=== PATIENT | female | born 1970 | race Caucasian/White ===

== ENCOUNTER → 2017-09-24 | Outpatient (CLI) | payer BC ==
--- NOTE | 2017-09-25 10:26 | RAD ---
EXAM DESCRIPTION: Chest,2 Views CLINICAL HISTORY: SOB COMPARISON: None available FINDINGS: The cardiomediastinal silhouette is unremarkable. Bilateral interstitial prominence is noted, most apparent in the lung bases. There is no airspace consolidation or pleural effusion. The lung volumes are within normal range. There is no pneumothorax or acute fracture. IMPRESSION: Bilateral interstitial prominence, nonspecific. The possibility of viral or other atypical infection should be considered. Mild pulmonary vascular congestion is a less likely consideration. Electronically signed by: Theodore Solis MD 09/25/2017 10:25 AM [facility]
== END | disposition home or self-care (01) ==
LOC: RAD 12:34
PROVIDERS: ATTEND Nurse Practitioner Family
DX: R06.02 Shortness of breath (principal)

== ENCOUNTER → 2018-01-17 | Outpatient (CLI) | payer BC | END | disposition home or self-care (01) | LOC: YCFC.O 11:28 | PROVIDERS: ATTEND Nurse Practitioner Family | DX: I10 Essential (primary) hypertension (principal) ==

== ENCOUNTER 2019-05-19 09:48 | Emergency (ER) | payer BC ==
[2019-05-19] MEDS ORDERED: KETOROLAC TROMETHAMINE INJ 30 MG/ML VIAL IV ONE (10:34)
[2019-05-19 10:47] VITALS: TEMP 97.4
--- NOTE | 2019-05-19 10:52 | ED.PDOC ---
History of Present Illness - General Chief Complaint: Lower Extremity Injury Stated Complaint: LEFT KNEE PAIN Time Seen by Provider: 05/19/19 10:17 Source: patient Exam Limitations: no limitations - History of Present Illness Initial Comments: Patient presents by EMS for left knee pain after a fall two days ago. She said she slipped and her left knee hit the ground. She states that she did not have symptoms at that time. This morning she walked downstairs without any problems but when she sat at her desk, the knee started throbbing. She had trouble ambulating at that time. She could not get up so she called EMS. Pain is inside the left knee joint and feels like it is "filling up with fluid". Throbbing in nature, non-radiating. She has osteoarthritis and morbid obesity. No other injuries from the fall. Timing/Duration: 1-3 hours Severity: moderate Improving Factors: rest Worsening Factors: movement Associated Symptoms: denies symptoms Allergies/Adverse Reactions: Allergies Penicillins Allergy (Verified 05/19/19 10:21) Home Medications: Ambulatory Orders Ondansetron HCl [Zofran] 4 mg PO Q6HRS PRN #12 tab 05/19/19 Tramadol HCl 50 mg PO Q4HR PRN #30 tab 05/19/19 Review of Systems - Review of Systems Constitutional: States: no symptoms reported EENTM: States: no symptoms reported Respiratory: States: no symptoms reported Cardiology: States: no symptoms reported Gastrointestinal/Abdominal: States: no symptoms reported Genitourinary: States: no symptoms reported Musculoskeletal: States: see HPI Skin: States: no symptoms reported Neurological: States: no symptoms reported Endocrine: States: no symptoms reported Hematologic/Lymphatic: States: no symptoms reported Past Medical History (General) - Patient Medical History Hx Cardiac Disorders: Yes Hx Hypertension: Yes Family Medical History - Family History Mother Family History: No Known Physical Exam - Physical Exam General Appearance: Obvious distress - moderate distress Respiratory: lungs clear, normal breath sounds Cardiovascular/Chest: normal peripheral pulses, regular rate, rhythm, no edema Gastrointestinal/Abdominal: normal bowel sounds, non tender, soft Extremity: other - bruising and swelling of the left knee. Patient is guarding. Curtis's test not possible due to morbid obesity and guarding. Progress - Progress Progress: 05/19/19 12:23 Radiographs of the right knee, hip, and ankle showed no fractures nor dislocations. STELLA wrap applied. RX for tramadol and zofran given. Care instructions given. E.R. warnings given. Questions were elicited and answered. Patient voiced understanding and agreement with the plan. Departure - Departure Clinical Impression: Knee sprain Disposition: Discharge to Home or Self Care Condition: Good Departure Forms: ED Discharge - Pt. Copy, Patient Portal Self Enrollment Instructions: DI for Knee Pain Diet: other - as per your regular doctor Activity: increase activity as tolerated Referrals: Pinky Chou NP [Primary Care Provider] - 1-2 Weeks Prescriptions: Tramadol HCl 50 mg PO Q4HR PRN #30 tab PRN Reason: Pain Ondansetron HCl [Zofran] 4 mg PO Q6HRS PRN #12 tab PRN Reason: Nausea Home Medications: Ambulatory Orders Ondansetron HCl [Zofran] 4 mg PO Q6HRS PRN #12 tab 05/19/19 Tramadol HCl 50 mg PO Q4HR PRN #30 tab 05/19/19 Additional Instructions: Use crutches. Ice to the painful area three times per day for [address] after taking tramadol. Elevated the left leg above the heart while sleeping at night. Use the STELLA wrap to the knee while awake for three days. If symptoms worsen or do not resolve in 2 weeks, call Dr. Lugo's office for an appointment.
--- NOTE | 2019-05-19 11:28 | RAD ---
2 radiographs left ankle Indication: fall Comparison: None Impression: The frontal view is slightly obliqued and no true oblique view is submitted. Moderate plantar calcaneal heel spur. Extensive subcutaneous edema about the ankle. No acute fracture identified. Electronically signed by: Long Mcmanus MD 05/19/2019 11:27 AM CDT
--- NOTE | 2019-05-19 11:29 | RAD ---
Radiograph left hip Indication: fall Comparison: None. Impression: Examination markedly limited due to underpenetration due to body habitus. No gross displaced fracture, however repeat radiographs versus MRI or CT recommended. Electronically signed by: Long Mcmanus MD 05/19/2019 11:27 AM CDT
--- NOTE | 2019-05-19 11:32 | RAD ---
EXAM DESCRIPTION: Knee,Left 1 or 2 Views CLINICAL HISTORY: fall COMPARISON: None. IMPRESSION: 2 views of the left knee show no acute fracture, focal bone destruction, or joint dislocation. A true lateral projection was not provided. Soft tissues are unremarkable. No advanced arthrosis. Electronically signed by: Kamran Haley MD 05/19/2019 11:30 AM CDT
[2019-05-19] MEDS ORDERED: TETANUS,DIPHTHERIA,PERTUSSIS 1 EA SYG IM ONE (12:47)
[2019-05-19 13:50] VITALS: BP 158/91; O2SAT 90
== END 2019-05-19 13:30 | disposition home or self-care (01) ==
LOC: ER 09:48
DX: S83.92XA Sprain of unspecified site of left knee, initial encounter (principal); I51.9 Heart disease, unspecified; I10 Essential (primary) hypertension; E66.01 Morbid (severe) obesity due to excess calories; Z88.0 Allergy status to penicillin; W01.0XXA Fall on same level from slipping, tripping and stumbling without subsequent striking against object, initial encounter; Z68.44 Body mass index [BMI] 60.0-69.9, adult; Z23 Encounter for immunization; Y92.9 Unspecified place or not applicable
CPT/HCPCS: 73502; 73560; 73600; 90471; 90715; J1885

== ENCOUNTER 2019-05-28 15:41 | Inpatient (IN) | payer BC, SELFPAY ==
[2019-05-28] MEDS ORDERED: VANCOMYCIN HCL INJ 1,000 MG, VANCOMYCIN HCL INJ 500 MG in SODIUM CHLORIDE 0.9% 250ML 25... IVPB ONE (15:58)
[2019-05-28] MEDS ORDERED: VANCOMYCIN HCL INJ 500 MG VIAL ONE (16:49)
[2019-05-28] MEDS ORDERED: VANCOMYCIN HCL INJ 1,000 MG VIAL IVPB ONE (16:49)
[2019-05-28] MEDS ORDERED: SODIUM CHLORIDE 0.9% 250ML 250 ML ONE (16:49)
--- NOTE | 2019-05-28 17:00 | US ---
EXAM DESCRIPTION: Venous,Lower Extremity LT CLINICAL HISTORY: edema, pain COMPARISON: None Available. TECHNIQUE: Left lower extremity venous duplex FINDINGS: There is no DVT identified. There is normal color flow observed with good flow augmentation. All deep veins compress normally. IMPRESSION: Negative for DVT in the left lower extremity. Electronically signed by: Michael Hudson MD 05/28/2019 4:58 PM CDT
--- NOTE | 2019-05-28 17:34 | ED.PDOC ---
History of Present Illness - General Chief Complaint: Skin/Abrasion/Tear Stated Complaint: left lower leg pain,redness,swelling Time Seen by Provider: 05/28/19 15:56 Source: patient Exam Limitations: no limitations - History of Present Illness Initial Comments: the patient is a 49-year-old female sent over from Dr. De La Torre's office secondary to cellulitis and swelling of her left lower extremity. The patient tripped and fell approximately 11 days ago on that knee. She had x-rays done here showing no evidence of any fracture or dislocation. She did apparently however for muscle at that time as she does have some bruising tracking up and down the back of her leg. Additionally since that time she has had more swelling and pain in her posterior calf. She does also appear to have a significant cellulitis to the anterior aspect of the knee. No obvious abscess formation. No chest pain or shortness of breath. No history of DVT. She does have numerous other multiple medical problems. Timing/Duration: getting worse Severity: moderate Improving Factors: nothing Worsening Factors: movement Associated Symptoms: diaphoresis, malaise Allergies/Adverse Reactions: Allergies Penicillins Allergy (Verified 05/19/19 10:21) Home Medications: Ambulatory Orders Ondansetron HCl [Zofran] 4 mg PO Q6HRS PRN #12 tab 05/19/19 Tramadol HCl 50 mg PO Q4HR PRN #30 tab 05/19/19 Review of Systems - Review of Systems Constitutional: States: malaise EENTM: States: no symptoms reported Respiratory: States: no symptoms reported Cardiology: States: no symptoms reported Gastrointestinal/Abdominal: States: no symptoms reported Genitourinary: States: no symptoms reported Musculoskeletal: States: see HPI Skin: States: see HPI Neurological: States: no symptoms reported Endocrine: States: no symptoms reported All other Systems: No Change from Baseline Past Medical History (General) - Patient Medical History Hx Stroke: No Hx of COPD: Yes Hx Cardiac Disorders: Yes Hx Hypertension: Yes Hx Diabetes: No Hx Cancer: Yes - Adrenal Surgical History: cholecystectomy, Hysterectomy - Vaccination History Hx Influenza Vaccination: No - Social History Hx Tobacco Use: Yes Family Medical History - Family History Mother Family History: No Known Physical Exam - Physical Exam General Appearance: Alert, Unkempt Eye Exam: bilateral normal Ears, Nose, Throat: hearing grossly normal, normal ENT inspection Neck: full range of motion, supple Respiratory: lungs clear, normal breath sounds, no respiratory distress, no accessory muscle use Cardiovascular/Chest: normal peripheral pulses, regular rate, rhythm Peripheral Pulses: radial,right: 2+, radial,left: 2+, dorsalis pedis,right: 2+, dorsalis pedis,left: 2+ Gastrointestinal/Abdominal: non tender - morbidly obese., soft Rectal Exam: deferred Back Exam: no CVA tenderness, no vertebral tenderness Extremity: other - significant swelling left lower extremity with bruising tracking down the posterior aspect and cellulitis to the anterior aspect. She has significant tenderness to palpation of the left calf. 3+ edema in the left lower extremity. None to the right lower extremity. 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 The patient is being admitted and placed on vancomycin. She has been on Bactrim previously apparently. Blood culture and wound culture have been performed. Left lower extremity Doppler here shows no evidence of DVT. We are repeating the x-ray of the femur and tib-fib to make sure that there is no evidence of any occult fracture not detected on original x-rays. Laboratory work is mostly reassuring at this point. I'm going to add Rocephin as a secondary antibiotic as well. The patient does have some significant hypertension but she is significantly uncomfortable. If her blood pressures fell to fall with getting comfortable then she will need additional medications. She does also have numerous chronic medical problems only to be followed at home medications continued. Admit for above reasons. Departure - Departure Clinical Impression: Cellulitis of leg without foot Disposition: Admit Patient Departure Forms: ED Discharge - Pt. Copy, Patient Portal Self Enrollment Referrals: Jesus De La Torre MD [Primary Care Provider] - 1-2 Weeks Home Medications: Ambulatory Orders Ondansetron HCl [Zofran] 4 mg PO Q6HRS PRN #12 tab 05/19/19 Tramadol HCl 50 mg PO Q4HR PRN #30 tab 05/19/19 Decision To Admit - Decistion To Admit Decision to Admit Reason: Medical Nature Decision to Admit Date: 05/28/19 Decision to Admit Time: 17:38
[2019-05-28] MEDS ORDERED: cefTRIAXone SODIUM 1 GM in SODIUM CHL 0.9% 50ML MIN-BAG+ 50 ML IVPB ONE (17:39)
--- NOTE | 2019-05-28 18:12 | HP ---
SUPERVISING PHYSICIAN: Graeme Gordon MD CHIEF COMPLAINT: Pain and cellulitis in the left leg status post fall. HISTORY OF PRESENT ILLNESS: Ms. Wilder is a 49-year-old female patient that is morbidly obese. She endorsed that she had fallen approximately 11 days ago at which time she was seen in the Emergency Room and evaluated with no fractures seen at that time. She had an abrasion to the left knee and some pain in the left posterior thigh area. She went to the clinic today to see Dr. De La Torre at [facility] who then referred the patient based on his assessment to be further evaluated for developing cellulitis and concerns for possible either occult fracture or deep venous thrombosis in the left leg status post fall. In the Emergency Room, it was noted that the back of her leg was notably ecchymotic with some swelling and pain in the posterior calf. She did have some significant cellulitis to the anterior aspect of the knee with no obvious abscess formation. She denied any chest pains or shortness of breath and has no history of deep venous thromboses. She is morbidly obese and has multiple underlying comorbidities. Initially, a DVT study of the left leg was without any evidence of thrombus per radiologic interpretation. She also had x- rays of the left tib-fib and femur without any acute findings. Laboratories showed a normal white count, but a mild left shift with white count of 9,700. Coagulation studies showed normal PT, PTT. Chemistries were fairly unremarkable with lactic 0.7 and C-reactive protein showing some elevation at 5.9. Sedrate normal at 27. Given the amount of edema and size of the leg compared to the right and with concerns for developing cellulitis, Dr. Cunha, the Emergency Room physician started the patient on vancomycin and Rocephin and is now requesting the patient be admitted for ongoing treatment with parenteral antibiotics for developing cellulitis and further evaluation. The patient was admitted in stable condition. PAST MEDICAL HISTORY: 1. Morbid obesity. 2. Chronic obstructive pulmonary disease. 3. Obstructive sleep apnea. 4. Right sided heart enlargement secondary to chronic obstructive pulmonary disease, utilizing CPAP. 5. History of adrenal carcinoma on the left with surgical cure. PAST SURGICAL HISTORY: 1. Tubal ligation in 1992. 2. Cholecystectomy. 3. Adrenocorticoectomy in 2004 on the left. 4. Hysterectomy in 2010. 5. Neck surgery with disc fusions and bone grafting. HOME MEDICATIONS: 1. Tramadol 50 mg q.4h. as needed p.r.n. 2. Zofran 4 mg q.6h. as needed p.r.n. 3. Motrin 800 mg p.o. b.i.d. as needed. 4. Symbicort 160-4.5 1 inhaled b.i.d. 5. Hydrochlorothiazide 25 mg at bedtime. 6. Cozaar 100 mg at bedtime. 7. Mobic 15 mg at bedtime as needed. 8. Atenolol 50 mg at bedtime. 9. Clonidine 0.1 mg b.i.d. ALLERGIES: PENICILLIN. FAMILY HISTORY: Positive for mother in her 70s with diabetes mellitus. Her father is in his late 70s secondary to lung cancer. She has one sister than has degenerative disc disease. She has another sister who has COPD and is obese. SOCIAL HISTORY: The patient is and has 3 children. She lives in [place], [place]. She rarely drinks alcohol. She does currently smoke, but smokes less than 1/4 pack a day and has since she was 6 years of age. She denies any illicit drug use. REVIEW OF SYSTEMS: CONSTITUTIONAL: Positive for general malaise. Denies fever or chills. HEENT: Negative for sore throats, earaches, nasal congestion, headaches, vision changes. RESPIRATORY: Denies coughing or shortness of breath. She does have a history of obstructive sleep apnea utilizing CPAP at night. She has COPD, but no signs of exacerbation. CARDIOVASCULAR: Negative for chest pain, palpitations or syncopal episodes. GASTROINTESTINAL: Negative for nausea, vomiting, diarrhea, constipation or abdominal pain. GENITOURINARY: Negative for dysuria, hematuria, polyuria. MUSCULOSKELETAL: As noted in history of present illness, left lower extremity swelling with erythema, abrasion to the anterior distal knee and some ecchymosis to the left posterior thigh with some pain into the calf region and numbness noted on the lateral aspect of the knee. SKIN: As noted in history of present illness and per musculoskeletal. NEUROLOGIC: Denies any headaches, vision changes, syncopal episodes, seizures, ataxia. PHYSICAL EXAMINATION: VITAL SIGNS: She was hypertensive initially in the Emergency Room with a blood pressure 173/125, respirations 20, saturation 95% on room air. Afebrile at 98.7. Heart rate 84. GENERAL: The patient is notably obese. She is unkempt, but appears to be in no acute distress. She is alert. HEENT: Tympanic membranes clear bilaterally. Oropharynx is pink, moist without any lesions. NECK: Supple, nontender with full range of motion. No jugular venous distention noted. RESPIRATORY: Lungs clear to auscultation bilaterally without any rhonchi, wheezes or rales. CARDIOVASCULAR: Regular rate and rhythm without any appreciable murmurs, gallops, or rubs. ABDOMEN: Soft, nontender. Positive bowel sounds. Morbidly obese. BACK: Negative for CVA or vertebral tenderness. EXTREMITIES: Significant amount of swelling to the left lower extremity with bruising tracking down the posterior aspect of the posterior thigh with some cellulitis of the anterior aspect of the knee. Tenderness noted with palpation of the left calf with 3+ edema in the left lower extremity extending from just below the knee to the foot. The right extremity was without any significant findings. No tenderness. Pulses strong bilaterally. NEUROLOGIC: The patient is alert and oriented times three. Cranial nerves II- XII are grossly intact. SKIN: Cellulitis to the left lower extremity with abrasion over the patellar region. No obvious abscess, fluctuation or crepitus. LABORATORY: White count 9,700, hemoglobin 14.3, hematocrit 43.5, platelet count 389,000. Differential does show a left shift. ESR normal at 27. Coagulation studies were normal. Chemistries showed normal electrolytes with creatinine 0.61. Lactic acid 0.7. Liver functions all within normal limits. She did have a slightly elevated C-reactive protein at 5.9. Troponin less than 0.02. MICROBIOLOGY: Wound culture of left knee is pending. Blood cultures pending. RADIOLOGY: She had a tib-fib x-ray on the left as well as femur without any notable fracture, but just soft tissue swelling observed per radiologic interpretation. The femur was without any significant findings as far as soft tissue or joint or any fractures or dislocations. ASSESSMENT: 1. Left lower extremity cellulitis status post fall with a negative lower extremity Doppler study for deep venous thrombosis. 2. Morbid obesity. 3. Chronic obstructive pulmonary disease with obstructive sleep apnea without any signs of exacerbation. 4. Right sided heart enlargement secondary to chronic obstructive pulmonary disease. 5. History of adrenal carcinoma with surgical cure on the left. PLAN: Ms. Wilder is going to be admitted for initiation of treatment of cellulitis of the lower extremity. She was given vancomycin 1500 mg initially in the Emergency Room. This will be followed up with vancomycin per pharmacy protocol as well as she was given Rocephin and this will be continued 1 gram q.12h. She will be on DVT prophylaxis per protocol with Lovenox. We will start her on a regular diet. We will resume her medications once updated and verified. We will plan to follow her labs and repeat those in the morning. We will await culture results to target antibiotic therapy. We will anticipate her length of stay to be 2 to 3 days. We will encourage good pulmonary hygiene and have the patient on bedrest or in the chair for the next 24 to 48 hours with the leg elevated to help decrease some of the swelling in that leg. Until she can transition to oral medications and outpatient management, we will continue to monitor and treat as needed. #[id number] MTDD
--- NOTE | 2019-05-28 18:16 | RAD ---
EXAM DESCRIPTION: Femur,Left CLINICAL HISTORY: bruising, cellutitis fall COMPARISON: 19 May 2019 TECHNIQUE: 2 views left FINDINGS: I see no bone joint or soft tissue abnormality. IMPRESSION: Normal left femur Electronically signed by: Percy Saavedra MD 05/28/2019 6:15 PM CDT
--- NOTE | 2019-05-28 18:17 | RAD ---
EXAM DESCRIPTION: Tibia/Fibula,Left CLINICAL HISTORY: bruising, cellutitis fall COMPARISON: 19 May 2019 TECHNIQUE: 2 views left FINDINGS: Soft tissue swelling is observed anteriorly. No bone or joint abnormality is detected. IMPRESSION: Soft tissue swelling is observed without evidence of fracturing. Electronically signed by: Percy Saavedra MD 05/28/2019 6:16 PM CDT
[2019-05-28] MEDS ORDERED: cefTRIAXone SODIUM 1 GM VIAL ONE (19:16)
[2019-05-28] MEDS ORDERED: SODIUM CHL 0.9% 50ML MIN-BAG+ 50 ML IVPB ONE (19:16)
[2019-05-28] MEDS ORDERED: NON-FORMULARY MEDICATION 1 EA MIS (Atenolol [Tenormin] 50 MG) PO SCH (21:00)
[2019-05-28] MEDS ORDERED: traMADol HCL 50 MG TAB PO PRN (22:15)
[2019-05-28] MEDS ORDERED: HYDROcodone 5MG/APAP 325MG 1 EA TAB PO PRN (22:19)
[2019-05-28] MEDS ORDERED: ALUM & MAG HYDROX-SIMETHICONE 30 ML UD PO PRN (22:19)
[2019-05-28] MEDS ORDERED: MORPHINE SULFATE INJ 10 MG/ML VIAL IV PRN (22:19)
[2019-05-28] MEDS ORDERED: MAGNESIUM HYDROXIDE 30 ML UD PO PRN (22:19)
[2019-05-28] MEDS ORDERED: SODIUM CHLORIDE 0.9% (FLUSH) 10 ML SYG IV PRN (22:19)
[2019-05-28] MEDS ORDERED: ONDANSETRON INJ 4 MG/2 ML VIAL IV PRN (22:19)
[2019-05-28] MEDS ORDERED: ATENOLOL 25 MG TAB ONE (22:47)
[2019-05-28] MEDS: LOSARTAN POTASSIUM 100 MG TAB PO SCH (22:50)
[2019-05-28] MEDS: hydroCHLOROthiazide 25 MG TAB PO SCH (22:50)
[2019-05-28] MEDS: IV SET AND CAP CHANGE INJ INJ SCH (22:50)
[2019-05-28] MEDS: cloNIDine HCL 0.1 MG TAB PO SCH (22:50)
[2019-05-29] MEDS: ACETAMINOPHEN 325 MG TAB PO PRN ×2 (01:08→12:52)
[2019-05-29] MEDS ORDERED: LORazepam 0.5 MG TAB PO ONE (02:09)
[2019-05-29] MEDS ORDERED: ALUM & MAG HYDROX-SIMETHICONE 30 ML, LIDOCAINE VISCOUS 2% 15 ML PO ONE ×2 (03:03)
[2019-05-29] MEDS ORDERED: ASPIRIN (CHEWABLE) 81 MG TAB PO ONE (03:05)
[2019-05-29] MEDS ORDERED: ASPIRIN TABLET 325 MG TAB ONE (03:09)
[2019-05-29] MEDS ORDERED: LIDOCAINE HCL 2% (MOUTH-THROAT) 15 ML UD ONE (03:09)
[2019-05-29] MEDS ORDERED: NITROGLYCERIN 0.2 MG/HR PATCH TD SCH (03:30)
[2019-05-29] MEDS: OMEPRAZOLE CAP 20 MG CAP PO SCH (06:19)
--- NOTE | 2019-05-29 07:34 | RAD ---
2 view chest indication: COPD Comparison: 09/24/17 Impression: Mild cardiomegaly. Mild vascular congestion. Mild aortic tortuosity. No lobar consolidation. Prior ACDF. Electronically signed by: Siva Mosher MD 05/29/2019 7:32 AM CDT
[2019-05-29] MEDS: BUDESONIDE/FORMOTEROL 160/4.5 60 PUFF/6 GM INH INH SCH (08:50)
[2019-05-29] MEDS ORDERED: [UNRECOGNIZED DRUG - OTHER] INH SCH (09:00)
[2019-05-29] MEDS ORDERED: SODIUM CHL 0.9% 50ML MIN-BAG+ 50 ML IVPB ONE (09:23)
[2019-05-29] MEDS ORDERED: cefTRIAXone SODIUM 1 GM VIAL ONE (09:24)
[2019-05-29] MEDS: cefTRIAXone SODIUM 1 GM in SODIUM CHL 0.9% 50ML MIN-BAG+ 50 ML IVPB SCH (09:25)
[2019-05-29] MEDS: ENOXAPARIN SODIUM 40 MG/0.4 ML SYG SUBCU SCH (09:33)
[2019-05-29] MEDS: cloNIDine HCL 0.1 MG TAB PO SCH ×2 (09:33→20:19)
[2019-05-29] MEDS ORDERED: VANCOMYCIN PER PHARMACY INJ SCH (10:00)
[2019-05-29] MEDS ORDERED: VANCOMYCIN HCL INJ 1,000 MG, VANCOMYCIN HCL INJ 500 MG in SODIUM CHLORIDE 0.9% 250ML 25... IVPB SCH (10:00)
[2019-05-29] MEDS ORDERED: VANCOMYCIN HCL INJ 500 MG VIAL ONE ×3 (10:21→18:15)
[2019-05-29] MEDS ORDERED: VANCOMYCIN HCL INJ 1,000 MG VIAL IVPB ONE ×3 (10:22→18:15)
[2019-05-29] MEDS ORDERED: SODIUM CHLORIDE 0.9% 250ML 250 ML ONE ×3 (10:22→18:15)
[2019-05-29] MEDS: VANCOMYCIN HCL INJ 1,000 MG, VANCOMYCIN HCL INJ 500 MG in SODIUM CHLORIDE 0.9% 250ML 25... IVPB SCH ×2 (11:10→18:21)
[2019-05-29] MEDS: LOSARTAN POTASSIUM 100 MG TAB PO SCH (20:18)
[2019-05-29] MEDS: hydroCHLOROthiazide 25 MG TAB PO SCH (20:19)
[2019-05-29] MEDS: ATENOLOL 25 MG TAB PO SCH (20:19)
--- NOTE | 2019-05-29 21:26 | PN ---
DATE: 05/29/19 SUPERVISING PHYSICIAN: Graeme Gordon M.D. SUBJECTIVE: The patient reports that the swelling in the leg has decreased. The pain is not as bad. She did have some episodes last night that seemed to be more of a panic attack, but she was worked up as if maybe it was chest pain. After she put on her CPAP she had no recurrence of pain. She responded well to Ativan. This morning, is having no complaints. OBJECTIVE: VITAL SIGNS: Temperature 98.1, pulse 75, blood pressure 145/77, respirations 16, satting 95% on room air. I's and O's show weight 176 kg. GENERAL: The patient is resting comfortably. She is alert and in no distress acutely. CHEST: Lung sounds were clear to auscultation, just slightly diminished towards the bases. HEART: Regular rate and rhythm. ABDOMEN: Obese but soft, non-tender. Positive bowel sounds. EXTREMITIES: Left leg continues to show some erythema but improved from yesterday with the erythema extending from just above the knee down to the foot with an abrasion area over the patellar region. There is a streaking ecchymotic area to the posterior aspect of the knee and lateral thigh area. Pulses distally are strong. Edema shows to be still 2+. NEUROLOGIC: She is alert and oriented times three. LABORATORY: No repeat laboratory yesterday except for troponin which was showing to be less than 0.02. EKG showed normal sinus rhythm last night. RADIOLOGY: Chest x-ray per radiology interpretation showed mid cardiomegaly with mild vascular congestion with mild aortic tortuosity with no lobar consolidations. ASSESSMENT: 1. Left lower extremity cellulitis status post fall with a negative lower extremity Doppler study for deep venous thrombosis showing some improvement with Levaquin and vancomycin. 2. Panic attack with questionable chest pain during the middle of the night responding to Ativan with no EKG changes, negative troponins and not having any recurrence of chest pain felt to be related to claustrophobia and use of CPAP. 3. Morbid obesity. 4. Chronic obstructive sleep apnea and chronic obstructive pulmonary disease without any signs of exacerbation utilizing CPAP at night. 4. Right sided heart enlargement secondary to chronic obstructive pulmonary disease. 5. History of adrenal carcinoma with surgical cure on the left. PLAN: Will continue with current plan at this point with vancomycin per Pharmacy protocol and Rocephin. She is on DVT prophylaxis with Lovenox. We restarted her medications. Will continue to follow cultures and will anticipate at least another 2 days with anticipation of discharging hopefully Sunday. If she continues to show improvement as she did today, I would anticipate she would go home Sunday. Until then will continue to monitor and treat as needed. #[id number] MTDD
[2019-05-30] MEDS: ACETAMINOPHEN 325 MG TAB PO PRN ×2 (02:31→14:05)
[2019-05-30] MEDS ORDERED: VANCOMYCIN HCL INJ 500 MG VIAL ONE ×3 (02:40→16:59)
[2019-05-30] MEDS ORDERED: VANCOMYCIN HCL INJ 1,000 MG VIAL IVPB ONE ×3 (02:40→17:00)
[2019-05-30] MEDS ORDERED: SODIUM CHLORIDE 0.9% 250ML 250 ML ONE ×3 (02:40→17:00)
[2019-05-30] MEDS: VANCOMYCIN HCL INJ 1,000 MG, VANCOMYCIN HCL INJ 500 MG in SODIUM CHLORIDE 0.9% 250ML 25... IVPB SCH ×2 (02:42→10:05)
[2019-05-30] MEDS: OMEPRAZOLE CAP 20 MG CAP PO SCH (06:13)
[2019-05-30] MEDS ORDERED: SODIUM CHL 0.9% 50ML MIN-BAG+ 50 ML IVPB ONE (07:08)
[2019-05-30] MEDS ORDERED: cefTRIAXone SODIUM 1 GM VIAL ONE (07:09)
[2019-05-30] MEDS: cefTRIAXone SODIUM 1 GM in SODIUM CHL 0.9% 50ML MIN-BAG+ 50 ML IVPB SCH (07:24)
[2019-05-30] MEDS: cloNIDine HCL 0.1 MG TAB PO SCH ×2 (08:19→21:08)
[2019-05-30] MEDS: ENOXAPARIN SODIUM 40 MG/0.4 ML SYG SUBCU SCH (08:19)
[2019-05-30] MEDS: BUDESONIDE/FORMOTEROL 160/4.5 60 PUFF/6 GM INH INH SCH ×2 (09:10→19:30)
[2019-05-30] MEDS: VANCOMYCIN HCL INJ 1,000 MG, VANCOMYCIN HCL INJ 250 MG in SODIUM CHLORIDE 0.9% 250ML 25... IVPB SCH (17:40)
[2019-05-30] MEDS: hydroCHLOROthiazide 25 MG TAB PO SCH (21:08)
[2019-05-30] MEDS: ATENOLOL 25 MG TAB PO SCH (21:08)
[2019-05-30] MEDS: LOSARTAN POTASSIUM 100 MG TAB PO SCH (21:08)
--- NOTE | 2019-05-30 21:33 | PN ---
DATE: 05/30/19 SUPERVISING PHYSICIAN: Graeme Gordon M.D. SUBJECTIVE: The patient continues to do well. Her leg is responding to therapy. She says the pain is much less. She has not been febrile. She has not had any more panic attacks. OBJECTIVE: VITAL SIGNS: Temperature 98.4, pulse 78, blood pressure 138/79, respirations 18, satting 94% on room air. Weight is 176.1 kg. GENERAL: The patient is resting comfortably. Appears to be in no acute distress. She is alert and oriented. CHEST: Lung sounds are clear to auscultation. HEART: Regular rate and rhythm. ABDOMEN: Obese but soft, non-tender. Positive bowel sounds. EXTREMITIES: Left leg continues to show some erythema but improved compared to yesterday. It is still a little tender to palpation over the knee. No obvious drainage. Pulses distally were 2+ bilaterally. The swelling is significantly decreased. It is about 1+ today compared to admission. No obvious drainage is noted from the abrasion over the knee. NEUROLOGIC: She is alert and oriented times three. LABORATORY: No additional laboratory studies were completed. RADIOLOGY: No additional radiographic studies today. ASSESSMENT: 1. Left lower extremity cellulitis status post fall with a negative lower extremity Doppler study for deep venous thrombosis showing some improvement with Levaquin and vancomycin. 2. Chest pain related to panic attacks with no evidence of acute coronary syndrome with EKGs being without any significant changes and cardiac troponins all being negative felt to be related to claustrophobia from use of CPAP with no recurrence of symptoms. 3. Morbid obesity complicating #1. 4. Chronic obstructive sleep apnea secondary to morbid obesity with a component of chronic obstructive pulmonary disease. 5. Right sided cardiomyopathy with enlargement secondary to chronic obstructive pulmonary disease probably cor pulmonale with no current signs of exacerbation. 6. History of adrenal carcinoma with surgical cure on the left. PLAN: The patient continues to show good response to current treatment plan with vancomycin per Pharmacy protocol as well as Rocephin. Will continue it as planned. She is on DVT prophylaxis. We continue to await cultures that were collected in the E. R. Anticipate hopefully being able to discharge tomorrow. Until then will continue to monitor and treat as needed. #[id number] [facility]
[2019-05-31] MEDS: ACETAMINOPHEN 325 MG TAB PO PRN ×2 (00:34→15:42)
[2019-05-31] MEDS ORDERED: VANCOMYCIN HCL INJ 500 MG VIAL ONE ×4 (01:52→19:31)
[2019-05-31] MEDS ORDERED: VANCOMYCIN HCL INJ 1,000 MG VIAL IVPB ONE ×4 (01:52→19:32)
[2019-05-31] MEDS ORDERED: SODIUM CHLORIDE 0.9% 250ML 250 ML ONE ×4 (01:52→19:31)
[2019-05-31] MEDS: VANCOMYCIN HCL INJ 1,000 MG, VANCOMYCIN HCL INJ 250 MG in SODIUM CHLORIDE 0.9% 250ML 25... IVPB SCH ×3 (01:54→17:46)
[2019-05-31] MEDS: OMEPRAZOLE CAP 20 MG CAP PO SCH (06:18)
[2019-05-31] MEDS ORDERED: SODIUM CHL 0.9% 50ML MIN-BAG+ 50 ML IVPB ONE (07:33)
[2019-05-31] MEDS ORDERED: cefTRIAXone SODIUM 1 GM VIAL ONE (07:33)
[2019-05-31] MEDS: cloNIDine HCL 0.1 MG TAB PO SCH ×2 (08:24→20:45)
[2019-05-31] MEDS: ENOXAPARIN SODIUM 40 MG/0.4 ML SYG SUBCU SCH (08:24)
[2019-05-31] MEDS: cefTRIAXone SODIUM 1 GM in SODIUM CHL 0.9% 50ML MIN-BAG+ 50 ML IVPB SCH (08:25)
[2019-05-31] MEDS: BUDESONIDE/FORMOTEROL 160/4.5 60 PUFF/6 GM INH INH SCH ×2 (09:30→20:36)
--- NOTE | 2019-05-31 16:12 | PN ---
DATE: 05/31/19 SUPERVISING PHYSICIAN: Graeme Gordon M.D. SUBJECTIVE: The patient is lying in her bed. She is asleep. She awakens easily. She feels like her leg has continued to improve but she still feels quite weak. Denies shortness of breath, chest pain, nausea or vomiting. OBJECTIVE: VITAL SIGNS: Temperature 97.8, heart rate 74, blood pressure 126/72, respiratory rate 17, O2 sat 97% on 2 liters. RESPIRATORY: Diminished breath sounds throughout, otherwise clear to auscultation. CARDIAC: Regular rate and rhythm. GASTROINTESTINAL: Abdomen is soft. She is obese. It is non-tender. Bowel sounds are positive. EXTREMITIES: Right leg is quite edematous. She has erythema from just distal to the right knee to her right ankle. There is no fluctuance. It is erythematous. Bilateral pedal pulses are +2. NEUROLOGIC: She is somewhat lethargic but oriented times three. LABORATORY: Preliminary blood cultures show no growth after 48 hours. All other labs and films have been reviewed via the EMR. ASSESSMENT: 1. Left lower extremity cellulitis status post fall with a negative lower extremity Doppler study for deep venous thrombosis showing some improvement with Levaquin and vancomycin. 2. Chest pain related to panic attacks with no evidence of acute coronary syndrome with EKGs being without any significant changes and cardiac troponins all being negative felt to be related to claustrophobia from use of CPAP with no recurrence of symptoms. 3. Morbid obesity complicating #1. 4. Chronic obstructive sleep apnea secondary to morbid obesity with a component of chronic obstructive pulmonary disease. 5. Right sided cardiomyopathy with enlargement secondary to chronic obstructive pulmonary disease probably cor pulmonale with no current signs of exacerbation. 6. History of adrenal carcinoma with surgical cure on the left. PLAN: We will continue present supportive care. I am still awaiting culture results. Hopefully when those are resulted we can discharge her home on oral therapy with close followup with her primary care physician. Hopefully she can be discharged tomorrow. Until then will continue to monitor closely and treat as needed. #[id number] [facility]
[2019-05-31] MEDS: hydroCHLOROthiazide 25 MG TAB PO SCH (20:46)
[2019-05-31] MEDS: ATENOLOL 25 MG TAB PO SCH (20:46)
[2019-05-31] MEDS: LOSARTAN POTASSIUM 100 MG TAB PO SCH (20:46)
[2019-05-31] MEDS: IV SET AND CAP CHANGE INJ INJ SCH (23:05)
[2019-06-01] MEDS: VANCOMYCIN HCL INJ 1,000 MG, VANCOMYCIN HCL INJ 250 MG in SODIUM CHLORIDE 0.9% 250ML 25... IVPB SCH ×2 (01:50→09:53)
[2019-06-01] MEDS: OMEPRAZOLE CAP 20 MG CAP PO SCH (06:09)
[2019-06-01] MEDS ORDERED: SODIUM CHL 0.9% 50ML MIN-BAG+ 50 ML IVPB ONE (07:13)
[2019-06-01] MEDS ORDERED: cefTRIAXone SODIUM 1 GM VIAL ONE (07:14)
[2019-06-01] MEDS: BUDESONIDE/FORMOTEROL 160/4.5 60 PUFF/6 GM INH INH SCH (07:57)
[2019-06-01] MEDS: cefTRIAXone SODIUM 1 GM in SODIUM CHL 0.9% 50ML MIN-BAG+ 50 ML IVPB SCH (08:22)
[2019-06-01 09:25] VITALS: TEMP 98.5
[2019-06-01] MEDS: ENOXAPARIN SODIUM 40 MG/0.4 ML SYG SUBCU SCH (09:28)
[2019-06-01] MEDS: cloNIDine HCL 0.1 MG TAB PO SCH (09:29)
[2019-06-01] MEDS ORDERED: VANCOMYCIN HCL INJ 1,000 MG VIAL IVPB ONE (09:41)
[2019-06-01] MEDS ORDERED: VANCOMYCIN HCL INJ 500 MG VIAL ONE (09:41)
[2019-06-01] MEDS ORDERED: SODIUM CHLORIDE 0.9% 250ML 250 ML ONE (09:41)
[2019-06-01] MEDS: ACETAMINOPHEN 325 MG TAB PO PRN (10:17)
[2019-06-01 12:51] VITALS: BP 134/72; O2SAT 95
--- NOTE | 2019-06-02 08:40 | DS ---
SUPERVISING PHYSICIAN: Graeme Gordon MD DISCHARGE DIAGNOSIS: 1. Left lower extremity cellulitis status post fall with a negative lower extremity Doppler study for deep venous thrombosis showing some improvement with Levaquin and vancomycin. 2. Chest pain related to panic attacks with no evidence of acute coronary syndrome with EKGs being without any significant changes and cardiac troponins all being negative felt to be related to claustrophobia from use of CPAP with no recurrence of symptoms. 3. Morbid obesity complicating #1. 4. Chronic obstructive sleep apnea secondary to morbid obesity with a component of chronic obstructive pulmonary disease. 5. Right sided cardiomyopathy with enlargement secondary to chronic obstructive pulmonary disease probably cor pulmonale with no current signs of exacerbation. 6. History of adrenal carcinoma with surgical cure on the left. HISTORY OF PRESENT ILLNESS: This is a 49-year-old morbidly obese female who came to the Emergency Room with complaints that she had fallen approximately 11 days prior. There were no fractures seen at that time. She had an abrasion to the left knee and some pain in the left posterior thigh area. She went to the clinic to see Dr. De La Torre and he referred the patient to the hospital for developing cellulitis and concerns for possible either occult fracture or deep venous thrombosis of the left leg status post fall. In the Emergency Room, it was noted that the back of her leg was notably ecchymotic with some swelling and pain in the posterior calf. She did have some significant cellulitis to the anterior aspect of the knee with no obvious abscess formation. She denied any chest pains or shortness of breath and has no history of deep venous thromboses. She has multiple underlying comorbidities that including morbid obesity. Her initial DVT study of the left leg was without any evidence of thrombus per radiologic interpretation. She also had x-rays of the left tib-fib and femur without any acute findings. Laboratories showed a normal white count with a mild left shift. Coagulation studies were normal. Chemistries were unremarkable. Lactic 0.7 and C-reactive protein elevated at 5.9. Sedrate normal at 27. Given the amount of edema and size of the leg compared to the right and with concerns for developing cellulitis, Dr. Cunha, the Emergency Room physician, felt that the patient should be started on vancomycin and Rocephin and be treated with ongoing parenteral antibiotics from the Emergency Rooms to the Medical/Surgical Floor. HOSPITAL COURSE: The patient was admitted to the hospital. She was given vancomycin and Rocephin. She was placed on DVT prophylaxis and her labs were closely monitored. Her left leg was elevated. She was given some tramadol for pain. Her home medications were restarted. It did improve, although very slowly. Her wound culture did come back positive for Streptococcus dysgalactiae. Her leg improved daily. The patient was able to ambulate in the hayes without any problems. Her tramadol controlled her pain well. She will be discharged home today in stable condition. LABORATORY: As per the history of present illness. RADIOLOGY: As per the history of present illness. DISCHARGE PLAN: The patient will be discharged home in stable condition. She is to resume her previous activity, but she is to elevate her left leg as much as possible. She is to followup with Dr. De La Torre within the next 1 to 2 weeks. In addition to her routine medications, she is also to have 10 days of cefdinir as well as I have given her some tramadol for pain. She will return to the hospital or followup with Dr. De La Torre for any problems or complications. DISCHARGE MEDICATIONS: 1. Tramadol. 2. Zofran. 3. Hydrochlorothiazide. 4. Losartan. 5. Meloxicam. 6. Ibuprofen. 7. Atenolol. 8. Clonidine. 9. Symbicort inhaler. 10. Cefdinir. #[id number] [facility]
== END 2019-06-01 12:51 | disposition home or self-care (01) | DRG 603 ==
LOC: ER 15:41 → MS 18:10
PROVIDERS: ADMIT Nurse Practitioner Family; ATTEND Nurse Practitioner Acute Care
DX: L03.116 Cellulitis of left lower limb (principal); I42.9 Cardiomyopathy, unspecified; Z68.44 Body mass index [BMI] 60.0-69.9, adult; F41.0 Panic disorder [episodic paroxysmal anxiety]; F40.240 Claustrophobia; S80.212A Abrasion, left knee, initial encounter; W19.XXXA Unspecified fall, initial encounter; G47.33 Obstructive sleep apnea (adult) (pediatric); J44.9 Chronic obstructive pulmonary disease, unspecified; I10 Essential (primary) hypertension; I27.81 Cor pulmonale (chronic); B95.4 Other streptococcus as the cause of diseases classified elsewhere; E66.01 Morbid (severe) obesity due to excess calories; Y92.9 Unspecified place or not applicable; Z79.1 Long term (current) use of non-steroidal anti-inflammatories (NSAID); Z85.89 Personal history of malignant neoplasm of other organs and systems; Z79.891 Long term (current) use of opiate analgesic; Z79.52 Long term (current) use of systemic steroids; Z79.899 Other long term (current) drug therapy; Z88.0 Allergy status to penicillin

== ENCOUNTER → 2019-07-09 | Outpatient (CLI) | payer BC ==
--- NOTE | 2019-07-09 16:52 | US ---
EXAM DESCRIPTION: Venous,Lower Extremity LT CLINICAL HISTORY: Cellulitis of lower limb COMPARISON: Previous left lower extremity Doppler sonogram May 28, 2019 TECHNIQUE: Left lower extremity venous duplex FINDINGS: Doppler evaluation of the left lower extremity deep veins was performed. Normal color flow is seen in the common femoral, superficial femoral, profunda femoral and greater saphenous veins. Normal flow is seen in the popliteal vein and veins below the knee in the calf. Normal venous compressibility and flow augmentation. IMPRESSION: Negative for evidence of deep venous thrombosis on left lower extremity venous Doppler sonogram. Electronically signed by: Richard Diaz MD 07/09/2019 4:50 PM CDT
== END ==
LOC: US 12:06
PROVIDERS: ATTEND Family Medicine
DX: L03.119 Cellulitis of unspecified part of limb (principal)

== ENCOUNTER → 2019-07-15 | Outpatient (CLI) | payer BC | LOC: YCFC.O 15:52 | PROVIDERS: ATTEND Family Medicine | DX: I10 Essential (primary) hypertension (principal); M13.0 Polyarthritis, unspecified ==

== ENCOUNTER 2019-10-23 05:35 | Day surgery (SDC) | payer BC ==
[2019-10-23] MEDS ORDERED: PROPOFOL 200 MG/20 ML VIAL IV ONE (07:00)
[2019-10-23] MEDS ORDERED: LIDOCAINE 1% 10 ML VIAL INJ ONE (07:00)
[2019-10-23] MEDS ORDERED: SODIUM CHLORIDE 0.9% 50 ML VIAL ONE (07:00)
[2019-10-23] MEDS ORDERED: LACTATED RINGERS 1,000 ML ONE (07:04)
[2019-10-23] MEDS ORDERED: LEVALBUTEROL NEBS 1.25 MG/3 ML VIAL NEB ONE ×2 (08:25→08:28)
[2019-10-23] MEDS ORDERED: DEXMEDETOMIDINE HCL 200 MCG/2 ML INJ IV ONE (08:40)
[2019-10-23] MEDS ORDERED: MIDAZOLAM INJ 2 MG/2 ML VIAL ONE (08:42)
[2019-10-23] MEDS ORDERED: KETAMINE HCL 100 MG/ML VIAL ONE (08:51)
--- NOTE | 2019-10-23 10:11 | OP ---
DATE OF PROCEDURE: 10/23/19 PREOPERATIVE DIAGNOSIS: 1. Anemia. 2. Abdominal pain. POSTOPERATIVE DIAGNOSIS: 1. Anemia. 2. Abdominal pain. PROCEDURE: 1. EGD with biopsy of pyloric ulcer. 2. Colonoscopy with excision of cecal polyp. SURGEON: Graeme James MD ANESTHESIA: General. PROCEDURE: In lateral position, general anesthesia was induced. With the bite block in place, the esophagogastroduodenoscope was introduced. The esophagus appeared normal, as did the gastroesophageal junction. Upon entering the stomach, there was no blood. We entered the duodenum without difficulty through the third portion. No evidence of duodenal ulcers was seen. Upon withdrawal through the pylorus, we identified a deep, non-bleeding ulcer on the upper portion with another ulcer across from that, kissing duodenal ulcer, non- bleeding. Biopsies were taken of the area. One will be sent for H. pylori. Upon withdrawal and retroflexion, no other abnormalities were seen. No significant hiatal hernia identified. Again, on withdrawal, the esophagus appeared normal. She was then placed in the lateral position. Digital rectal exam was normal. The colonoscope was inserted without difficulty. The colonoscope was then passed with minimal effort to the cecum. There was a lot of large food particles in the cecum, so the very distal cecum was not adequately evaluated, but no evidence of significant polyps there were seen. There was one small polyp in the distal cecum, about 2 mm that was excised. Upon withdrawal, no other polyps were seen. There was no evidence of colitis, etc. Air was removed and the scope removed without difficult. Retroflexion was also normal prior. The patient tolerated the procedure and was taken to Recovery to be discharged. #[id number] [facility]
[2019-10-23 11:33] VITALS: O2SAT 95
[2019-10-23 15:35] VITALS: BP 97/66; TEMP 98.8
== END 2019-10-23 11:00 | disposition home or self-care (01) ==
LOC: AMB 05:35
PROVIDERS: ATTEND Surgery
DX: D50.9 Iron deficiency anemia, unspecified (principal); K29.50 Unspecified chronic gastritis without bleeding; B96.81 Helicobacter pylori [H. pylori] as the cause of diseases classified elsewhere; D12.0 Benign neoplasm of cecum; K59.00 Constipation, unspecified; F32.9 Major depressive disorder, single episode, unspecified; K21.9 Gastro-esophageal reflux disease without esophagitis; J44.9 Chronic obstructive pulmonary disease, unspecified; J45.909 Unspecified asthma, uncomplicated; I10 Essential (primary) hypertension; E66.01 Morbid (severe) obesity due to excess calories; Z68.44 Body mass index [BMI] 60.0-69.9, adult; Z88.0 Allergy status to penicillin; Z90.710 Acquired absence of both cervix and uterus; Z79.82 Long term (current) use of aspirin; Z79.899 Other long term (current) drug therapy
CPT/HCPCS: 00813; 43239; 45380; 94640; A4216; J2250; J3490; J7120; J7614

== ENCOUNTER → 2019-10-29 | Outpatient (CLI) | payer BC | LOC: LAB.O 10:48 | PROVIDERS: ATTEND Family Medicine | DX: D64.9 Anemia, unspecified (principal) ==

== ENCOUNTER 2020-10-20 18:04 | Inpatient (IN) | payer BC, SELFPAY ==
--- NOTE | 2020-10-20 18:40 | ED.PDOC ---
History of Present Illness - General Chief Complaint: Respiratory Problem Time Seen by Provider: 10/20/20 18:40 - History of Present Illness Initial Comments: 50-year-old female positive past medical history presents with friend to ED complaining of several days of worsening shortness of breath. Patient endorses associated headache, fatigue, generalized body aches, cough, nasal congestion. She denies any chest pain, palpitations, loss of taste or smell, nausea/vomiting/diarrhea. Positive history of similar symptoms due to COPD. Denies alleviating/aggravating factors. No other signs, symptoms, complaints at this time. Allergies/Adverse Reactions: Allergies Penicillins Allergy (Unknown, Verified 10/22/19 14:41) Home Medications: Ambulatory Orders Ondansetron HCl [Zofran] 4 mg PO Q6HRS PRN #12 tab 05/19/19 Atenolol [Tenormin] 25 mg PO DAILY 05/28/19 Clonidine HCl 0.1 mg PO BID 05/28/19 Hydrochlorothiazide 25 mg PO DAILY 05/28/19 Losartan Potassium [Cozaar] 100 mg PO DAILY 05/28/19 Tramadol HCl 50 mg PO Q4HR PRN #30 tab 06/01/19 Acetaminophen [Tylenol] 1,000 mg PO Q6HR PRN 10/22/19 Aspirin [Misael Aspirin] 325 mg PO DAILY 10/22/19 Meloxicam [Mobic] 15 mg PO BEDTIME 10/22/19 Multiple Vitamin [Multi Vitamin] 1 tab PO DAILY 10/22/19 Potassium 2 tablet PO DAILY 10/22/19 Review of Systems - Review of Systems Constitutional: States: other - fatigue. Denies: chills, fever EENTM: States: nose congestion. Denies: throat pain Respiratory: States: cough, short of breath Cardiology: Denies: chest pain, palpitations Gastrointestinal/Abdominal: Denies: abdominal pain, diarrhea, nausea, vomiting Genitourinary: Denies: dysuria, frequency Musculoskeletal: States: muscle pain. Denies: neck pain Skin: Denies: change in color, rash Neurological: States: headache. Denies: paresthesia Hematologic/Lymphatic: Denies: easy bruising Past Medical History (General) - Patient Medical History Hx Seizures: Yes - fever seizures as an Hx Stroke: No Hx Asthma: Yes Hx of COPD: Yes Hx Cardiac Disorders: Yes Hx Congestive Heart Failure: No Hx Pacemaker: No Hx Hypertension: Yes Hx Diabetes: No Hx Cancer: Yes - Adrenal Hx MRSA: No - Vaccination History Hx Influenza Vaccination: No - Social History Hx Tobacco Use: Yes Hx Alcohol Use: No Hx Substance Use: No Hx Physical Abuse: No Hx Emotional Abuse: Yes Family Medical History - Family History Mother Family History: No Known Living Status: Still Living Hx Family Asthma: No Hx Family Congestive Heart Failure: No Hx Family Hypertension: Yes Hx Family Stroke: No Hx Cardiac Disease: No Hx Family Diabetes: Yes Hx Family Cancer: No Father Living Status: Cause of : Lung Cancer Physical Exam - Physical Exam General Appearance: Alert, Obese, Other - Morbid BMI, distressed Eyes, Ears, Nose, Throat Exam: normal ENT inspection, other - no scleral icterus Neck: full range of motion, supple Respiratory: respiratory distress, decreased breath sounds, accessory muscle use, wheezing, other - tachypnea Cardiovascular/Chest: no edema, no JVD, no murmur, tachycardia, other - regular rhythm Gastrointestinal/Abdominal: normal bowel sounds, non tender, soft, other - protruberant Extremity: normal inspection, no pedal edema Neurologic: alert, normal mood/affect, oriented x 3 Skin Exam: normal color, warm/dry, other - no rash Progress - Progress Progress: Lior Singh DO Emergency Medicine Physician [facility] #[id number] Appropriate PPE of surgical mask, gown, gloves, and eye protection (if encounter >5 minutes) utilized with every patient encounter; in accordance with hospital policy. Presents for COPD exacerbation. Low clinical concern for COVID19. I will perform imaging, labs, EKG, provide appropriate pharmacotherapy, and continue to monitor/reassess. Dispo will depend on imaging results and overall course in ED; however, admission is expected due to hypoxia on RA. 10/20/20 19:12 decision to admit Rechecked pt. VSS. I have discussed need for admission and pt agrees. 1958 Consulted with hospitalist Eder Power discussed patient's case in ED along with current findings. He accepts patient for admission. - Results/Orders Results/Orders: EKG @2111: Sinus tachycardia at 103, normal axis, intervals within normal limits, no ST elevation/depressions, no STEMI. 10/20/20 19:10 IV Care:Saline Lock per Protoc QSHIFT 10/20/20 19:11 IV:Start .ONCE 10/20/20 19:12 EKG Assessment ONCE 10/20/20 19:15 EKG STAT 10/20/20 19:30 BLOOD CULTURE Stat 10/20/20 20:22 ED Intent to Admit Routine Laboratory Results - last 24 hr 10/20/20 10/20/20 10/20/20 19:15 19:15 19:15 WBC 9.7 RBC 6.29 H* Hgb 12.0 Hct 39.9 MCV 63.5 L MCH 19.1 L MCHC 30.0 L RDW 24.1 H Plt Count 296 MPV 8.6 Absolute Neuts (auto) 7.50 H Absolute Lymphs (auto) 1.00 Absolute Monos (auto) 0.70 Absolute Eos (auto) 0.30 Absolute Basos (auto) 0.10 Neutrophils % 77.4 Lymphocytes % 10.5 L Monocytes % 7.5 Eosinophils % 3.5 Basophils % 1.1 Normal RBC Morphology Stain quality accept D-Dimer, Quantitative 165.0 Sodium 141 Potassium 3.8 Chloride 101 Carbon Dioxide 33 H Anion Gap 10.8 L BUN 20 H Creatinine 0.93 BUN/Creatinine Ratio 21.5 H Random Glucose 122 H Serum Osmolality 285.2 Lactic Acid Calcium 8.8 Total Bilirubin 0.7 AST 17 ALT 20 Alkaline Phosphatase 109 Troponin I B-Natriuretic Peptide 37.6 Serum Total Protein 7.5 Albumin 3.7 Globulin 3.8 H Albumin/Globulin Ratio 1.0 L 10/20/20 10/20/20 19:15 19:53 WBC RBC Hgb Hct MCV MCH MCHC RDW Plt Count MPV Absolute Neuts (auto) Absolute Lymphs (auto) Absolute Monos (auto) Absolute Eos (auto) Absolute Basos (auto) Neutrophils % Lymphocytes % Monocytes % Eosinophils % Basophils % Normal RBC Morphology D-Dimer, Quantitative Sodium Potassium Chloride Carbon Dioxide Anion Gap BUN Creatinine BUN/Creatinine Ratio Random Glucose Serum Osmolality Lactic Acid 1.0 Calcium Total Bilirubin AST ALT Alkaline Phosphatase Troponin I < 0.02 B-Natriuretic Peptide Serum Total Protein Albumin Globulin Albumin/Globulin Ratio EXAM DESCRIPTION: Chest,1 View CLINICAL HISTORY: 50 years Female SOB COMPARISON: 05/29/2019. FINDINGS: Stable cardiomediastinal silhouette. Opacity overlying the bilateral lower lungs mainly from overlying soft tissues. There appears to be mild infiltrate or atelectasis at the left lung base. No large pleural effusion is identified. No pneumothorax. There are postsurgical changes in the cervical spine. IMPRESSION: The study is suboptimal from patient body habitus. There appears to be mild atelectasis or infiltrate in the left lower lung. Changes from an infectious process are not excluded. Electronically signed by: Amador Bishop MD 10/20/2020 8:36 PM PATIENT OBSERVATION ASSISTANT Vital Signs - 24 hr 10/20/20 10/20/20 19:09 19:12 Temperature 98.6 F Pulse Rate [ 96 H monitor] Respiratory 25 H 28 H Rate Blood Pressure 184/118 [Left Arm] O2 Sat by Pulse 92 L Oximetry Departure - Departure Clinical Impression: COPD exacerbation, Acute respiratory failure with hypoxia CAP (community acquired pneumonia) Qualifiers: Laterality: left Lung location: lower lobe of lung Qualified Code(s): J18.9 - Pneumonia, unspecified organism Time of Disposition: 20:16 Disposition: Admit Patient Condition: Poor Home Medications: Ambulatory Orders Ondansetron HCl [Zofran] 4 mg PO Q6HRS PRN #12 tab 05/19/19 Atenolol [Tenormin] 25 mg PO DAILY 05/28/19 Clonidine HCl 0.1 mg PO BID 05/28/19 Hydrochlorothiazide 25 mg PO DAILY 05/28/19 Losartan Potassium [Cozaar] 100 mg PO DAILY 05/28/19 Tramadol HCl 50 mg PO Q4HR PRN #30 tab 06/01/19 Acetaminophen [Tylenol] 1,000 mg PO Q6HR PRN 10/22/19 Aspirin [Misael Aspirin] 325 mg PO DAILY 10/22/19 Meloxicam [Mobic] 15 mg PO BEDTIME 10/22/19 Multiple Vitamin [Multi Vitamin] 1 tab PO DAILY 10/22/19 Potassium 2 tablet PO DAILY 10/22/19 Decision To Admit - Decistion To Admit Decision to Admit Date: 10/20/20 Decision to Admit Time: 18:56
[2020-10-20] MEDS ORDERED: DEXAMETHASONE INJ 10 MG/ML VIAL IV ONE (19:11)
[2020-10-20] MEDS ORDERED: AZITHROMYCIN IV 500 MG in SODIUM CHLORIDE 0.9% 250ML 250 ML IVPB ONE (19:11)
[2020-10-20] MEDS ORDERED: IPRATROPIUM/ALBUTEROL 3 ML VIAL NEB ONE (19:11)
[2020-10-20] MEDS ORDERED: cefTRIAXone SODIUM 1 GM in SODIUM CHL 0.9% 50ML MIN-BAG+ 50 ML IVPB ONE (19:11)
--- NOTE | 2020-10-20 20:38 | RAD ---
EXAM DESCRIPTION: Chest,1 View CLINICAL HISTORY: 50 years Female SOB COMPARISON: 05/29/2019. FINDINGS: Stable cardiomediastinal silhouette. Opacity overlying the bilateral lower lungs mainly from overlying soft tissues. There appears to be mild infiltrate or atelectasis at the left lung base. No large pleural effusion is identified. No pneumothorax. There are postsurgical changes in the cervical spine. IMPRESSION: The study is suboptimal from patient body habitus. There appears to be mild atelectasis or infiltrate in the left lower lung. Changes from an infectious process are not excluded. Electronically signed by: Amador Bishop MD 10/20/2020 8:36 PM [facility]
--- NOTE | 2020-10-20 20:57 | HP ---
SUPERVISING PHYSICIAN: Graeme Gordon MD CHIEF COMPLAINT: Increasing shortness of breath. HISTORY OF PRESENT ILLNESS: Ms. Wilder is a 50-year-old female patient who is severely obese with a body mass index of 62 with a past medical history of chronic obstructive pulmonary disease and chronic tobacco abuse. She presented to the Emergency Room on 10/20/20 complaining of severe shortness of breath that has been worsening over the last several days. It is associated with headache, fatigue, generalized body aches. She has had no chest pains. She does utilize CPAP at night. Workup in the Emergency Room initially showed vital signs with saturation 92% on 3 liters nasal cannula with significant shortness of breath with respirations 28 and hypertensive at 184/118. Laboratory studies showed white count 9,700, differential showing a slight left shift. Coagulation studies showed normal D-dimer. Chemistries showed creatinine 0.93, CO2 elevated at 33, anion gap low at 10.8. Lactic acid normal at 1.0. Blood sugars 122. Troponin less than 0.02. BNP normal at 37. COVID swab was negative. Chest x-ray in the Emergency Room showed mild atelectasis or infiltrate in the left lower lung, changes suspicious for infectious process. Given the patient's body habitus, concerns for developing pneumonia, chronic obstructive pulmonary disease and a current smoker and mild hypoxia on room air, even though she is COVID negative, she is going to be admitted for exacerbation of chronic obstructive pulmonary disease for further treatment and evaluation. PAST MEDICAL HISTORY: 1. Morbid obesity. 2. Chronic obstructive pulmonary disease. 3. Obstructive sleep apnea utilizing CPAP. 4. Right sided heart enlargement secondary to chronic obstructive pulmonary disease and obesity, utilizing CPAP. 5. History of adrenal carcinoma on the left with surgical cure. PAST SURGICAL HISTORY: 1. Tubal ligation. 2. Cholecystectomy. 3. Adrenocortical-ectomy in 2004 on the left. 4. Neck surgery with disc fusion and bone grafting. HOME MEDICATIONS: 1. Tramadol 50 mg q.4h. as needed for pain. 2. Potassium daily. 3. Zofran 4 mg q.6h. as needed for nausea. 4. Multivitamin daily. 5. Mobic 15 mg at bedtime. 6. Cozaar 100 mg daily. 7. Hydrochlorothiazide 25 mg daily. 8. Clonidine 0.1 mg b.i.d. 9. Atenolol 25 mg daily. 10. Aspirin 325 mg daily. 11. Tylenol 1000 mg q.6h. as needed. ALLERGIES: PENICILLINS. FAMILY HISTORY: Mother in her 70s with diabetes mellitus. Father in late 70s secondary to lung cancer. She has one sister who has degenerative disc disease. She has another sister who has chronic obstructive pulmonary disease and is obese. SOCIAL HISTORY: The patient is and has 3 children. She lives in [place]. She seldom drinks alcohol. She does currently smoke approximately one pack a day and apparently has since she was 6 years of age. She denies any illicit drug use. REVIEW OF SYSTEMS: CONSTITUTIONAL: Positive for general malaise. Denies any fevers, chills. HEENT: Denies headaches, sore throats, earaches, nasal congestion, vision changes. RESPIRATORY: Positive for cough, increasing shortness of breath. CARDIOVASCULAR: Denies chest pain, palpitations or syncopal episodes. GASTROINTESTINAL: Denies nausea, vomiting, diarrhea, constipation or abdominal pain. GENITOURINARY: Denies dysuria, hematuria, polyuria. MUSCULOSKELETAL: Chronic erythema and swelling with edema to the lower extremities associated with obesity. SKIN: Denies lesions, rashes, moles or unexplained changes. NEUROLOGIC: Denies headaches, vision changes, syncopal episodes, seizures, ataxia. HEMATOLOGIC: Denies unexplained bleeding, bruising or transfusion reactions. PHYSICAL EXAMINATION: VITAL SIGNS: Initially in the Emergency Room, she was afebrile at 97.8, pulse 106, hypertensive at 184/114, respirations from 22 to 28, saturation 92% on 4 liters nasal cannula. GENERAL: She is morbidly obese, she is alert, she shows some mild distress with shortness of breath with conversation. HEENT: Tympanic membranes clear bilaterally. Oropharynx is pink, moist without any lesions. NECK: Supple, nontender with full range of motion. No jugular venous distention noted. RESPIRATORY: Lung sounds are significantly diminished, difficult to hear due to body habitus. She was having some mild wheezing with some tachypneic respiration efforts. CARDIOVASCULAR: Regular rate and rhythm although very difficult to hear due to body habitus. There is no obvious jugular venous distention. No murmurs, gallops, or rubs. ABDOMEN: Severe obese, protuberant with normal bowel sounds. Nontender. EXTREMITIES: There is no cyanosis, clubbing, but trace edema bilaterally. NEUROLOGIC: Cranial nerves II-XII are grossly intact. Facial features are symmetrical. Extraocular movements are within normal limits. There is no nystagmus noted. The patient is alert and oriented times three. SKIN: Warm, pink and dry. No notable rashes or lesions. LABORATORY: White count 9,700, hemoglobin 12.0, hematocrit 39.0. RBC indices indicated a microcytic presentation. She did show elevated RBCs at 6.29. Differential was without a left shift. Coagulation studies showed normal D- dimer. Chemistries showed normal electrolytes, but her CO2 was elevated at 33. BUN 0.93. Liver functions all within normal limits. Lactic acid 1.0. Troponin less than 0.02. BNP normal at 37. MICROBIOLOGY: Blood cultures are pending. Nasal swab for COVID was negative. RADIOLOGY: Chest x-ray in the Emergency Room per radiologic interpretation of single view chest showed difficult to see due to body habitus, but there was note of some mild atelectasis or infiltration in the lower left lung, changes concerning for infectious process and certainly cannot be excluded. ASSESSMENT: 1. Acute exacerbation of chronic obstructive pulmonary disease with likely bilateral pneumonia, community acquired. 2. Hypoxia associated with #1 with some probably chronic hypercapnia, exacerbated by #1. 3. Chronic tobacco abuse. 4. Obstructive sleep apnea utilizing CPAP. 5. Morbid obesity with body mass index greater than 60. 6. History of right sided heart enlargement due to chronic obstructive pulmonary disease and obesity. 7. History of adrenal carcinoma with surgical cure on the left. PLAN: Ms. Wilder is going to be admitted for chronic obstructive pulmonary disease exacerbation acutely. She will be started on antibiotic coverage with Rocephin and azithromycin. We will have her on DuoNeb treatments with aggressive pulmonary hygiene. I anticipate her length of stay to be at least 2 to 3 days. We will start her on some Solu-Medrol 40 mg q.6h. for 4 doses given that she has advanced COPD, is a chronic smoker and was having some wheezing on admission. We will provide oxygen as needed to keep saturations above 94%. We will follow labs as needed. She will also be on Lovenox per protocol. Until the patient can transition to outpatient management, we will continue to monitor and treat as needed. [id number] [facility]
[2020-10-20] MEDS ORDERED: hydrOXYzine PAMOATE 25 MG CAP ONE (20:59)
[2020-10-20] MEDS ORDERED: ONDANSETRON INJ 4 MG/2 ML VIAL IV PRN (23:44)
[2020-10-20] MEDS ORDERED: SODIUM CHLORIDE 0.9% (FLUSH) 10 ML SYG IV PRN (23:44)
[2020-10-20] MEDS ORDERED: ALBUTEROL SULFATE 2.5 MG/3 ML VIAL NEB PRN (23:44)
[2020-10-21] MEDS: ACETAMINOPHEN 325 MG TAB PO PRN (00:30)
[2020-10-21] MEDS ORDERED: cloNIDine HCL 0.1 MG TAB PO ONE (00:45)
[2020-10-21] MEDS: IV SET AND CAP CHANGE INJ INJ SCH (01:38)
[2020-10-21] MEDS: methylPREDNISolone SODIUM SUC 40 MG/ML VIAL IV SCH ×3 (05:34→17:09)
[2020-10-21] MEDS ORDERED: PANTOPRAZOLE SODIUM IV 40 MG VIAL IV SCH (06:30)
[2020-10-21] MEDS ORDERED: SODIUM CHLORIDE 0.9% 250ML 250 ML ONE (07:10)
[2020-10-21] MEDS ORDERED: SODIUM CHL 0.9% 50ML MIN-BAG+ 50 ML IVPB ONE (07:10)
[2020-10-21] MEDS ORDERED: cefTRIAXone SODIUM 1 GM VIAL ONE (07:10)
[2020-10-21] MEDS ORDERED: AZITHROMYCIN IV 500 MG VIAL IVPB ONE (07:10)
[2020-10-21] MEDS: guaiFENesin ER TAB 600 MG TAB PO SCH ×2 (08:25→23:16)
[2020-10-21] MEDS: ENOXAPARIN SODIUM 40 MG/0.4 ML SYG SUBCU SCH (08:25)
[2020-10-21] MEDS: BIFIDOBACTERIUM INFANTIS 4 MG CAP PO SCH (08:25)
[2020-10-21] MEDS: cefTRIAXone SODIUM 1 GM in SODIUM CHL 0.9% 50ML MIN-BAG+ 50 ML IVPB SCH (08:26)
--- NOTE | 2020-10-21 08:27 | RAD ---
EXAM: Chest 1 view CLINICAL HISTORY: Short of breath COMPARISON STUDY: Chest x-ray from October 20, 2020 TECHNICAL: 1 view chest FINDINGS: The heart is enlarged. The central pulmonary vasculature is distended. Bilateral interstitial prominence suggest pulmonary edema. Given current infection prevalence, accompanying infection would be difficult to exclude. There are small bilateral pleural effusions. Vascular calcifications are present within the aortic arch. IMPRESSION: Cardiomegaly and findings suggestive of mild pulmonary edema. It would be very difficult to completely exclude some component of basilar infection. Electronically signed by: Ricardo Hernandez MD 10/21/2020 8:26 AM [facility]
[2020-10-21] MEDS: AZITHROMYCIN IV 500 MG in SODIUM CHLORIDE 0.9% 250ML 250 ML IVPB SCH (09:04)
[2020-10-21] MEDS: IPRATROPIUM/ALBUTEROL 3 ML VIAL INH SCH ×4 (09:10→23:03)
[2020-10-21] MEDS ORDERED: HALOPERIDOL LACTATE INJ 5 MG/ML VIAL IM ONE (17:47)
[2020-10-21] MEDS ORDERED: methylPREDNISolone SODIUM SUC 125 MG/2 ML VIAL IV ONE (18:14)
--- NOTE | 2020-10-21 19:34 | PN ---
SUPERVISING PHYSICIAN: Graeme Gordon M.D. DATE: 10/21/20 SUBJECTIVE: The patient is quite lethargic. She will answer some simple yes/no questions. She is requiring a nonrebreather at this time. She denies any shortness of breath, nausea or vomiting, but it is difficult to get her to elaborate about her condition. Nursing reports that they are also having a difficult time with getting her to communicate. I am not sure what her baseline is, but will most likely need to change her mode of oxygen delivery. OBJECTIVE: VITAL SIGNS: Temperature 98.7, heart rate 85. It has been as high as 120. Blood pressure 176/86, respiratory rate 22, O2 saturation 93% on a Venturi mask at 8 liters. RESPIRATORY: Scattered rhonchi throughout as well as inspiratory and expiratory wheezing. They are diminished at the bases most likely due to body habitus. She also has mild tachypnea with any type of exertion. CARDIOVASCULAR: Regular rate and rhythm. NEUROLOGIC: She is awake and alert. She does answer simple questions appropriately, but has difficulty speaking in phrases. LABORATORY: WBCs are 13,300 with hemoglobin 12, hematocrit 41. Sodium 141, potassium 5, chloride 100, carbon dioxide 33, BUN 20, creatinine 0.67. Preliminary blood cultures show no growth. RADIOLOGY: Chest x-ray shows cardiomegaly and findings suggestive of mild pulmonary edema. It would be very difficult to completely exclude some component of basilar infection. ASSESSMENT: 1. Acute exacerbation of chronic obstructive pulmonary disease with likely bilateral pneumonia, community acquired. 2. Hypoxia associated with #1 with some probably chronic hypercapnia, exacerbated by #1. 3. Chronic tobacco abuse. 4. Obstructive sleep apnea utilizing CPAP. 5. Morbid obesity with body mass index greater than 60. 6. History of right sided heart enlargement due to chronic obstructive pulmonary disease and obesity. 7. History of adrenal carcinoma with surgical cure on the left. PLAN: We will continue present supportive care. At this point, I think her hypoxia is persisting and we will need to change her to BiPAP. We will monitor that as protocol indicates. She will continue on her present antibiotic coverage as well as her aggressive pulmonary hygiene. I will also need to increase her IV Solu-Medrol and I will titrate that off tomorrow. I have ordered lab and film for in the morning. We will continue to monitor and treat as needed. #[id number] [facility]
[2020-10-21] MEDS ORDERED: IPRATROPIUM/ALBUTEROL 3 ML VIAL NEB ONE (23:00)
[2020-10-22] MEDS ORDERED: HALOPERIDOL LACTATE INJ 5 MG/ML VIAL IM PRN (01:25)
[2020-10-22] MEDS: methylPREDNISolone SODIUM SUC 125 MG/2 ML VIAL IV SCH ×3 (01:37→13:46)
[2020-10-22] MEDS ORDERED: PANTOPRAZOLE SODIUM TAB 40 MG PO ONE (03:35)
[2020-10-22] MEDS: PANTOPRAZOLE SODIUM IV 40 MG VIAL IV SCH (06:02)
[2020-10-22] MEDS ORDERED: PANTOPRAZOLE SODIUM TAB 40 MG PO SCH (06:30)
[2020-10-22] MEDS: IPRATROPIUM/ALBUTEROL 3 ML VIAL INH SCH ×4 (08:50→19:50)
[2020-10-22] MEDS: AZITHROMYCIN IV 500 MG in SODIUM CHLORIDE 0.9% 250ML 250 ML IVPB SCH (09:53)
[2020-10-22] MEDS: cefTRIAXone SODIUM 1 GM in SODIUM CHL 0.9% 50ML MIN-BAG+ 50 ML IVPB SCH (09:53)
[2020-10-22] MEDS: ENOXAPARIN SODIUM 40 MG/0.4 ML SYG SUBCU SCH (09:53)
[2020-10-22] MEDS: BIFIDOBACTERIUM INFANTIS 4 MG CAP PO SCH (09:53)
[2020-10-22] MEDS: guaiFENesin ER TAB 600 MG TAB PO SCH ×2 (09:53→20:13)
--- NOTE | 2020-10-22 11:32 | RAD ---
EXAM DESCRIPTION: Chest,1 View CLINICAL HISTORY: 50 years Female, copd;pna COMPARISON: October 21, 2020 Findings: One view(s)/radiograph(s) Cardiac megaly. Similar pulmonary vascular congestion. No pneumothorax. No definite pleural effusion. Slightly increased patchy multifocal bilateral airspace disease. No acute osseous abnormality. IMPRESSION: Increased patchy multifocal bilateral airspace disease; pulmonary edema or pneumonia. Electronically signed by: Lew Quinonez MD 10/22/2020 11:30 AM [employer]
[2020-10-22] MEDS ORDERED: FUROSEMIDE INJ 40 MG/4 ML VIAL IV ONE (12:25)
[2020-10-22] MEDS ORDERED: methylPREDNISolone SODIUM SUC 125 MG/2 ML VIAL ONE (13:27)
[2020-10-22] MEDS: LOSARTAN POTASSIUM 100 MG TAB PO SCH (13:34)
[2020-10-22] MEDS ORDERED: ATENOLOL 25 MG TAB PO ONE (15:20)
[2020-10-22] MEDS ORDERED: ATENOLOL 25 MG TAB ONE (19:11)
[2020-10-22] MEDS ORDERED: methylPREDNISolone SODIUM SUC 40 MG/ML VIAL ONE (19:11)
[2020-10-22] MEDS: ATENOLOL 25 MG TAB PO SCH (20:13)
[2020-10-22] MEDS: methylPREDNISolone SODIUM SUC 40 MG/ML VIAL IV SCH (22:02)
[2020-10-22] MEDS ORDERED: PROMETHAZINE HCL INJ 25 MG in SODIUM CHLORIDE 0.9% 50ML 50 ML IVPB PRN (22:10)
[2020-10-22] MEDS ORDERED: PROMETHAZINE HCL INJ 25 MG/ML VIAL ONE (22:12)
[2020-10-22] MEDS ORDERED: SODIUM CHLORIDE 0.9% 50ML 50 ML ONE (22:13)
[2020-10-23] MEDS: PANTOPRAZOLE SODIUM IV 40 MG VIAL IV SCH (06:13)
[2020-10-23] MEDS: methylPREDNISolone SODIUM SUC 40 MG/ML VIAL IV SCH (06:13)
[2020-10-23] MEDS ORDERED: predniSONE 20 MG TAB ONE (07:43)
--- NOTE | 2020-10-23 08:22 | RAD ---
EXAM: Chest,1 View HISTORY: copd; pna; chf? COMPARISON: Chest 1 View AP 10/22/2020 TECHNIQUE: Chest 1 View AP FINDINGS: Evaluation more difficult due to patient body habitus. Heart size appears moderately enlarged and may be partly due to portable AP technique. Moderate symmetric bilateral lower lungs/chest density may again in part represent overlying breast/chest wall attenuation artifact. Small left superolateral lung field nodule again seen. No significant pleural effusion or pneumothorax. No acute fracture. Anterior cervical spinal fusion hardware again seen. IMPRESSION: No significant change 1. Moderate symmetric bilateral lower lungs/chest density may again in part represent overlying breast/chest wall attenuation artifact. Underlying pulmonary edema, subsegmental atelectasis, and/or infection cannot be ruled out. 2. Moderate cardiomegaly. Electronically signed by: Yoni Boothe MD 10/23/2020 8:21 AM [employer]
[2020-10-23] MEDS ORDERED: guaiFENesin W/CODEINE LIQ 10 ML UD PO PRN (08:53)
--- NOTE | 2020-10-23 09:06 | PN ---
SUPERVISING PHYSICIAN: Graeme Gordon M.D. DATE: 10/22/20 SUBJECTIVE: The patient is sitting up in bed. She is much more alert with us today. We discussed her C02 retention and I have encouraged her to stop smoking. Otherwise, she has no complaints. OBJECTIVE: VITAL SIGNS: Temperature 98.3, heart rate 99. Blood pressure 159/101, respiratory rate 22, O2 saturation 93% on a 5 liters nasal cannula. RESPIRATORY: Diminished breath sounds throughout, most likely due to body habitus. Some distant rhonchi and mild expiratory wheezing noted in the upper lung juarez. CARDIOVASCULAR: Regular rate and rhythm. ABDOMEN: Soft, she is obese. Bowel sounds are positive. NEUROLOGIC: She is awake and alert and oriented x3. LABORATORY: WBCs are 11,200 with hemoglobin 11.7, hematocrit 39.9. She has a left shift on her differential. Electrolytes are basically unremarkable with a blood sugar of 148. Preliminary blood cultures show no growth after 48 hours. RADIOLOGY: Chest x-ray shows increased patchy multifocal bilateral airspace disease, pulmonary edema or pneumonia. ASSESSMENT: 1. Acute exacerbation of chronic obstructive pulmonary disease with likely bilateral pneumonia, community acquired. 2. Hypoxia associated with #1 with some probably chronic hypercapnia, exacerbated by #1. 3. Chronic tobacco abuse. 4. Obstructive sleep apnea utilizing CPAP. 5. Morbid obesity with body mass index greater than 60. 6. History of right sided heart enlargement due to chronic obstructive pulmonary disease and obesity. 7. History of adrenal carcinoma with surgical cure on the left. PLAN: We will continue present supportive care. I had earlier ordered an ABG but I discontinued that due to patient's change in neuro status. She is awake and able to answer all questions. I did give her some Lasix and she may have some early congestive heart failure. I also ordered an echocardiogram. We will need to do bladder training and discontinue her Almaraz as soon as possible. At this point, we have been unable to get medications verified and her blood pressure has been elevated so I started her on her Labetalol and Losartan. Those may need to be adjusted after her medications are verified. [facility][id number] [facility]
[2020-10-23] MEDS: IPRATROPIUM/ALBUTEROL 3 ML VIAL INH SCH ×4 (09:30→21:30)
[2020-10-23] MEDS: cefTRIAXone SODIUM 1 GM in SODIUM CHL 0.9% 50ML MIN-BAG+ 50 ML IVPB SCH (10:35)
[2020-10-23] MEDS: LOSARTAN POTASSIUM 100 MG TAB PO SCH (10:38)
[2020-10-23] MEDS: BIFIDOBACTERIUM INFANTIS 4 MG CAP PO SCH (10:38)
[2020-10-23] MEDS: ATENOLOL 25 MG TAB PO SCH ×2 (10:39→20:44)
[2020-10-23] MEDS: ENOXAPARIN SODIUM 40 MG/0.4 ML SYG SUBCU SCH (10:39)
[2020-10-23] MEDS: predniSONE 20 MG TAB PO SCH (10:39)
[2020-10-23] MEDS: AZITHROMYCIN IV 500 MG in SODIUM CHLORIDE 0.9% 250ML 250 ML IVPB SCH (10:39)
[2020-10-23] MEDS ORDERED: guaiFENesin ER TAB 600 MG TAB ONE (11:03)
[2020-10-23] MEDS: cloNIDine HCL 0.1 MG TAB PO SCH ×2 (11:11→20:44)
[2020-10-23] MEDS: guaiFENesin ER TAB 600 MG TAB PO SCH ×2 (11:11→20:44)
[2020-10-23] MEDS: ACETAMINOPHEN 325 MG TAB PO PRN (20:44)
[2020-10-23] MEDS: IV SET AND CAP CHANGE INJ INJ SCH (23:53)
[2020-10-23] MEDS: methylPREDNISolone SODIUM SUC 125 MG/2 ML VIAL IV SCH (23:53)
[2020-10-24] MEDS: methylPREDNISolone SODIUM SUC 125 MG/2 ML VIAL IV SCH ×3 (05:12→18:56)
[2020-10-24] MEDS: PANTOPRAZOLE SODIUM IV 40 MG VIAL IV SCH (05:13)
[2020-10-24] MEDS: IPRATROPIUM/ALBUTEROL 3 ML VIAL INH SCH ×4 (08:00→21:35)
[2020-10-24] MEDS ORDERED: cloNIDine HCL 0.1 MG TAB ONE (08:02)
[2020-10-24] MEDS: cloNIDine HCL 0.1 MG TAB PO SCH ×2 (09:20→20:41)
[2020-10-24] MEDS: guaiFENesin ER TAB 600 MG TAB PO SCH ×2 (09:20→20:41)
[2020-10-24] MEDS: ATENOLOL 25 MG TAB PO SCH ×2 (09:20→20:41)
[2020-10-24] MEDS: BIFIDOBACTERIUM INFANTIS 4 MG CAP PO SCH (09:20)
[2020-10-24] MEDS: ENOXAPARIN SODIUM 40 MG/0.4 ML SYG SUBCU SCH (09:20)
[2020-10-24] MEDS: LOSARTAN POTASSIUM 100 MG TAB PO SCH (09:20)
[2020-10-24] MEDS: predniSONE 20 MG TAB PO SCH (09:20)
[2020-10-24] MEDS: cefTRIAXone SODIUM 1 GM in SODIUM CHL 0.9% 50ML MIN-BAG+ 50 ML IVPB SCH (09:21)
[2020-10-24] MEDS: AZITHROMYCIN IV 500 MG in SODIUM CHLORIDE 0.9% 250ML 250 ML IVPB SCH (09:21)
--- NOTE | 2020-10-24 09:59 | PN ---
SUPERVISING PHYSICIAN: Graeme Gordon M.D. DATE: 10/23/20 SUBJECTIVE: The patient is lying in bed. She is asleep. Due to her increase in CO2, she had to go back on the BiPAP. I discussed with the patient why she had to use the BiPAP for now and she understands that her carbon dioxide is increasing. She denies chest pain, nausea or vomiting. OBJECTIVE: VITAL SIGNS: Temperature 97.4, heart rate 80. Blood pressure 139/90, respiratory rate 20, O2 saturation 90% on BiPAP. RESPIRATORY: Diminished breath sounds throughout, most likely due to body habitus. CARDIOVASCULAR: Regular rate and rhythm. NEUROLOGIC: She is awake and alert and oriented x3. LABORATORY: WBCs are 13,700 with hemoglobin 11.7, hematocrit 40.7. She has a left shift on her differential. Chloride 95, BUN 32, creatinine 0.67. Preliminary blood cultures show no growth after 3 days. . RADIOLOGY: Chest x-ray: 1. Moderate symmetric bilateral lower lung, suggested to again in part represent overlying breast chest wall attenuation artifact, underlying pulmonary edema. Subsegmental atelectasis and/or infection cannot be ruled out. 2. Moderate cardiomegaly. All other labs and films have been reviewed via the EMR. ASSESSMENT: 1. Acute exacerbation of chronic obstructive pulmonary disease with likely bilateral pneumonia, community acquired. 2. Hypoxia associated with #1 with some probably chronic hypercapnia, exacerbated by #1. 3. Chronic tobacco abuse. 4. Obstructive sleep apnea utilizing CPAP. 5. Morbid obesity with body mass index greater than 60. 6. History of right sided heart enlargement due to chronic obstructive pulmonary disease and obesity. 7. History of adrenal carcinoma with surgical cure on the left. PLAN: We will continue present supportive care. She will need to continue the BiPAP for now. I will repeat an ABG in the morning and she may have to go home on a BiPAP machine. I will repeat her labs in the morning. She will good aggressive pulmonary hygiene, she will continue on her present antibiotic therapy. We will monitor and treat as indicated. [facility][id number] [facility]
[2020-10-24] MEDS ORDERED: cloNIDine HCL 0.1 MG TAB PO ONE (16:42)
[2020-10-24] MEDS ORDERED: LABETALOL INJ 5 MG/ML VIAL IV ONE (18:41)
[2020-10-24] MEDS ORDERED: METOPROLOL TARTRATE 50 MG TAB PO ONE (18:44)
[2020-10-24] MEDS ORDERED: methylPREDNISolone SODIUM SUC 125 MG/2 ML VIAL ONE ×2 (18:53→19:18)
[2020-10-24] MEDS: ACETAMINOPHEN 325 MG TAB PO PRN (19:44)
[2020-10-25] MEDS: methylPREDNISolone SODIUM SUC 125 MG/2 ML VIAL IV SCH ×2 (00:19→06:01)
[2020-10-25] MEDS ORDERED: methylPREDNISolone SODIUM SUC 125 MG/2 ML VIAL ONE (02:24)
[2020-10-25] MEDS: PANTOPRAZOLE SODIUM IV 40 MG VIAL IV SCH (06:00)
--- NOTE | 2020-10-25 06:32 | RAD ---
PROCEDURE:XR CHEST 1 VIEW HISTORY:hypercapnic resp failure COMPARISON: October 23, 2020 FINDINGS: The heart is again seen be mildly enlarged.. Cephalization seen on the prior examination has resolved somewhat the prior exam there is no alveolar consolidation or effusion. There is no pneumothorax. There are no acute bony or soft tissue abnormalities. IMPRESSION: Mild residual congestive changes. Electronically signed by: Yoni Rosales MD 10/25/2020 6:31 AM [facility]
[2020-10-25] MEDS: cefTRIAXone SODIUM 1 GM in SODIUM CHL 0.9% 50ML MIN-BAG+ 50 ML IVPB SCH (08:22)
[2020-10-25] MEDS: cloNIDine HCL 0.1 MG TAB PO SCH ×2 (08:26→20:04)
[2020-10-25] MEDS: BIFIDOBACTERIUM INFANTIS 4 MG CAP PO SCH (08:26)
[2020-10-25] MEDS: ENOXAPARIN SODIUM 40 MG/0.4 ML SYG SUBCU SCH (08:27)
[2020-10-25] MEDS: LOSARTAN POTASSIUM 100 MG TAB PO SCH (08:27)
[2020-10-25] MEDS: guaiFENesin ER TAB 600 MG TAB PO SCH ×2 (08:27→20:05)
[2020-10-25] MEDS: IPRATROPIUM/ALBUTEROL 3 ML VIAL INH SCH ×4 (08:27→20:58)
[2020-10-25] MEDS: ATENOLOL 25 MG TAB PO SCH ×2 (08:47→20:04)
--- NOTE | 2020-10-25 08:49 | PN ---
SUPERVISING PHYSICIAN: Graeme Gordon M.D. DATE: 10/24/20 SUBJECTIVE: The patient is sitting up in bed. She is supposed to be wearing the BiPAP and she continuously pulls at her mask. I have explained to her in detail the importance of wearing her BiPAP. She agrees that she will do so. She actually is in no acute distress as she surfs on her computer while on the BiPAP. OBJECTIVE: VITAL SIGNS: Temperature 97.9, heart rate 59. Blood pressure 151/93, respiratory rate 12, O2 saturation 98% on BiPAP. She alternates between BiPAP and nasal cannula. LABORATORY: WBCs are 9,700 with hemoglobin 11.6, hematocrit 39.8. Blood gas shows pCO2 83, pO2 56, bicarb 42.4, pH 7.43, ABG 86.6. Electrolytes show sodium 139, potassium 4.7, chloride 94, BUN 33 creatinine 0.63, glucose 171. MICROBIOLOGY: Preliminary blood cultures show no growth after 4 days. ASSESSMENT: 1. Acute exacerbation of chronic obstructive pulmonary disease with likely bilateral pneumonia, community acquired. 2. Hypoxia associated with #1 with some probably chronic hypercapnia, exacerbated by #1. 3. Chronic tobacco abuse. 4. Obstructive sleep apnea utilizing CPAP. 5. Morbid obesity with body mass index greater than 60. 6. History of right sided heart enlargement due to chronic obstructive pulmonary disease and obesity. 7. History of adrenal carcinoma with surgical cure on the left. PLAN: We will continue present supportive care. She will continue the BiPAP and will most likely need to be discharged on BiPAP for home. I have ordered lab and ABG for in the morning as well as chest x-ray. Her blood pressure has been elevated off and on in the last 2 to 3 days and I have added a blood pressure medicine including metoprolol. Hopefully, her blood pressure will stabilize and will need to be discharged on metoprolol as well as her other routine medications. we will continue to monitor the patient closely and treat as needed. #[id number] [facility]
[2020-10-25] MEDS ORDERED: METOPROLOL TARTRATE 50 MG TAB PO SCH (09:00)
[2020-10-25] MEDS: FUROSEMIDE INJ 20 MG/2 ML VIAL IV SCH ×2 (09:05→16:46)
[2020-10-25] MEDS: methylPREDNISolone SODIUM SUC 40 MG/ML VIAL IV SCH ×2 (13:33→21:53)
--- NOTE | 2020-10-25 14:19 | PN ---
SUPERVISING PHYSICIAN: Devin Cunha MD DATE: 10/25/20 SUBJECTIVE: The patient does not feel any shortness of breath of significance at this time. She does not complain of any nausea or vomiting. She wants to eat breakfast. OBJECTIVE: VITAL SIGNS: Blood pressure 181/90, heart rate 87, respiratory rate 17, temperature 97.5, oxygen saturation 93% on 6 liters. GENERAL: Ms. Wilder is a 50-year-old female who is ill in appearance, but in no active distress. NEUROLOGIC: The patient is alert. LUNGS: Diminished primarily in the bases. No rales or wheezing. CARDIOVASCULAR: Regular rate and rhythm. Normal S1, S2. ABDOMEN: Soft. Positive bowel sounds. GENITOURINARY: Deferred. EXTREMITIES: Lower extremities with 2+ edema. Pulses 2+. Capillary refill is less than 2 seconds. LABORATORY: White count 7.4, hemoglobin 11.3, platelet count 246. She did have an ABG today which showed pH 7.35, pCO2 in the 70s. Chemistry showed BUN 34, creatinine 0.56. RADIOLOGY: Chest x-ray today shows some mild congestion. ASSESSMENT: 1. Acute exacerbation of chronic obstructive pulmonary disease with likely bilateral pneumonia. 2. Acute on chronic respiratory failure secondary to chronic obstructive pulmonary disease exacerbation and obesity hypoventilation syndrome/obstructive sleep apnea. 3. Obstructive sleep apnea utilizing CPAP at home with nasal prongs. 4. Chronic nicotine dependency. 5. Morbid obesity. 6. History of right sided heart enlargement secondary to chronic obstructive pulmonary disease. 7. History of adrenal carcinoma status post surgical intervention. PLAN: We will continue noninvasive ventilation and utilize nasal cannula for breaks. She will probably need oxygen at home as she does not use it already. Additionally, given her body habitus, I doubt that CPAP is sufficient for her. I would recommend she be evaluate for BiPAP and a full facemask be used at home. She likely has a significant degree of obesity hypoventilation syndrome. She did have an echocardiogram on 10/22/20 which showed an ejection fraction of 45- 50%, but did not show any significant right sided heart failure or pulmonary hypertension which is really pretty surprising. Today, I am going to reduce her steroids to 40 mg q.8h. and put her on scheduled diuretics. We will wean oxygen as tolerated and try to get her in condition where she can be discharged. [facility][id number] [facility]
[2020-10-25] MEDS: amLODIPine BESYLATE 5 MG TAB PO SCH (18:07)
[2020-10-26] MEDS: methylPREDNISolone SODIUM SUC 40 MG/ML VIAL IV SCH (06:00)
[2020-10-26] MEDS: PANTOPRAZOLE SODIUM IV 40 MG VIAL IV SCH (06:01)
[2020-10-26] MEDS: cloNIDine HCL 0.1 MG TAB PO SCH ×2 (08:00→20:31)
[2020-10-26] MEDS: guaiFENesin ER TAB 600 MG TAB PO SCH ×2 (08:01→20:31)
[2020-10-26] MEDS: ATENOLOL 25 MG TAB PO SCH ×2 (08:01→20:31)
[2020-10-26] MEDS: amLODIPine BESYLATE 5 MG TAB PO SCH (08:01)
[2020-10-26] MEDS: FUROSEMIDE INJ 20 MG/2 ML VIAL IV SCH ×2 (08:01→16:20)
[2020-10-26] MEDS: BIFIDOBACTERIUM INFANTIS 4 MG CAP PO SCH (08:01)
[2020-10-26] MEDS: cefTRIAXone SODIUM 1 GM in SODIUM CHL 0.9% 50ML MIN-BAG+ 50 ML IVPB SCH (08:02)
[2020-10-26] MEDS: LOSARTAN POTASSIUM 100 MG TAB PO SCH (08:02)
[2020-10-26] MEDS: ENOXAPARIN SODIUM 40 MG/0.4 ML SYG SUBCU SCH (08:02)
[2020-10-26] MEDS: IPRATROPIUM/ALBUTEROL 3 ML VIAL INH SCH ×4 (08:25→21:45)
[2020-10-26] MEDS: predniSONE 20 MG TAB PO SCH (10:53)
--- NOTE | 2020-10-26 16:28 | PN ---
SUPERVISING PHYSICIAN: Devin Cunha MD DATE: 10/25/20 SUBJECTIVE: The patient feels a lot better today, more clear in the head than she was. Does not look like there is any shortness of breath right now. OBJECTIVE: VITAL SIGNS: Blood pressure 151/84, heart rate 77, respiratory rate 18, temperature 96.6, oxygen saturation 90% on room air. GENERAL: Ms. Wilder is a 51-year-old female who is in no active distress. NEUROLOGIC: The patient is alert. LUNGS: Diminished but otherwise clear to auscultation bilaterally. CARDIOVASCULAR: Regular rate and rhythm. Normal S1, S2. ABDOMEN: Soft. Positive bowel sounds. EXTREMITIES: Lower extremities with positive edema. ASSESSMENT: 1. Acute on chronic respiratory failure secondary to chronic obstructive pulmonary disease exacerbation and obesity hypoventilation syndrome/obstructive sleep apnea. 2. Acute exacerbation of chronic obstructive pulmonary disease with likely bilateral pneumonia. 3. Obstructive sleep apnea utilizing CPAP at home with nasal prongs. 4. Chronic nicotine dependency. 5. Morbid obesity. 6. History of right sided heart enlargement secondary to chronic obstructive pulmonary disease. 7. History of adrenal carcinoma status post surgical intervention. PLAN: She has physical improvement. I am going to put her p.o. steroids today and continue the IV Lasix. If she continues to improve over the next 24 hours, she can discharged home on p.o. steroids, p.o. diuretic as well as outpatient antibiotics. She will need to followup with her primary care physician as an outpatient and once again, he could consider trying to get a repeat sleep study to see if she qualifies for a CPAP. #[id number] [facility]
[2020-10-27] MEDS: IV SET AND CAP CHANGE INJ INJ SCH (00:12)
[2020-10-27] MEDS: PANTOPRAZOLE SODIUM IV 40 MG VIAL IV SCH (06:10)
--- NOTE | 2020-10-27 07:13 | RAD ---
PROCEDURE:XR CHEST 1 VIEW HISTORY:follow up copd COMPARISON: October 25, 2020 FINDINGS: The heart is stable in appearance.. There are stable congestive changes seen to be present. There is no evidence for alveolar consolidation or pneumothorax. There are no acute bony or soft tissue abnormalities. IMPRESSION: Stable congestive changes Electronically signed by: Yoni Rosales MD 10/27/2020 7:12 AM [facility]
[2020-10-27] MEDS: ENOXAPARIN SODIUM 40 MG/0.4 ML SYG SUBCU SCH (08:36)
[2020-10-27] MEDS: guaiFENesin ER TAB 600 MG TAB PO SCH (08:37)
[2020-10-27] MEDS: LOSARTAN POTASSIUM 100 MG TAB PO SCH (08:37)
[2020-10-27] MEDS: ATENOLOL 25 MG TAB PO SCH (08:37)
[2020-10-27] MEDS: BIFIDOBACTERIUM INFANTIS 4 MG CAP PO SCH (08:37)
[2020-10-27] MEDS: cefTRIAXone SODIUM 1 GM in SODIUM CHL 0.9% 50ML MIN-BAG+ 50 ML IVPB SCH (08:38)
[2020-10-27] MEDS: predniSONE 20 MG TAB PO SCH (08:38)
[2020-10-27] MEDS: amLODIPine BESYLATE 5 MG TAB PO SCH (08:38)
[2020-10-27] MEDS: FUROSEMIDE INJ 20 MG/2 ML VIAL IV SCH (08:38)
[2020-10-27] MEDS: cloNIDine HCL 0.1 MG TAB PO SCH (08:50)
[2020-10-27] MEDS: IPRATROPIUM/ALBUTEROL 3 ML VIAL INH SCH (08:53)
[2020-10-27 12:23] VITALS: BP 121/83; TEMP 97.8; O2SAT 90
--- NOTE | 2020-10-27 13:38 | DS ---
SUPERVISING PHYSICIAN: Devin Cunha MD DISCHARGE DIAGNOSIS: 1. Acute exacerbation of chronic obstructive pulmonary disease with likely bilateral pneumonia, community acquired. 2. Hypoxia associated with #1 with some probably chronic hypercapnia, exacerbated by #1. 3. Chronic tobacco abuse. 4. Obstructive sleep apnea utilizing CPAP. 5. Morbid obesity with body mass index greater than 60. 6. History of right sided heart enlargement due to chronic obstructive pulmonary disease and obesity. 7. History of adrenal carcinoma with surgical cure on the left. HISTORY OF PRESENT ILLNESS: This is a 50-year-old female patient who is morbidly obese with a past medical history of chronic obstructive pulmonary disease and chronic tobacco abuse. She came to the Emergency Room complaining of severe shortness of breath that had been worsening over the previous several days. She also had a headache, fatigue and generalized body aches. She had no chest pains. She does utilize CPAP at night. Workup in the Emergency Room initially showed O2 saturation 92% on 3 liters nasal cannula with significant shortness of breath with respirations 28 and hypertensive at 184/118. WBCs were within normal limits, but she did have a left shift on her differential. Normal D-dimer. COVID swab was negative. Her other labs were unremarkable. Chest x- ray showed mild atelectasis or infiltrate in the left lower lung, changes suspicious for infectious process. Given the patient's body habitus, concerns for developing pneumonia, chronic obstructive pulmonary disease and a current smoker and hypoxia on room air, she was admitted to the hospital in stable condition. HOSPITAL COURSE: Over the next 24 to 48 hours, the patient became very lethargic. She had a very difficult time answering even some simple yes/no questions. She was requiring a non-rebreather. Her ABGs showed she was retaining CO2 with a pCO2 in the 80s. She was switched to a BiPAP and she was given Haldol and Ativan due to her agitation and to continue use of the BiPAP. After about 2 days, her mental status improved. She was able to answer all questions and her mental status normalized. We had a long discussion about cigarette smoking and that with her COPD, she was retaining carbon dioxide and she may have to go home on a BiPAP machine. An echocardiogram was ordered, which is unavailable for review for the discharge summary. Several days after that, we tried to pull her BiPAP off. We continued with good, aggressive pulmonary hygiene as well as her antibiotics. She also had Solu-Medrol that was titrated to oral prednisone. She also had Rocephin and azithromycin that were continued. She completed her azithromycin, but continued on Rocephin. She also received Lasix due to the pulmonary edema and had good output from that. She also had some elevated blood pressures. Her Atenolol was doubled and amlodipine was added to her medication regime. Her blood pressure has normalized. The patient has been on room air for 24 hours. Again, we discussed at length smoking cessation and that she would most likely need BiPAP if she continued to smoke. Today, her labs have been stable and her O2 saturations have been stable. She will be discharged home today with close followup with Dr. De La Torre. In addition to her routine medications, she will have 7 days of cefdinir, prescription for amlodipine. Her Atenolol has been increased to 5 mg twice daily. LABORATORY: WBCs started at 9,700 and went up as high as 13,700. Today, it is 9,800. Hemoglobin and hematocrit are stable at 13.1 and 44. D-dimer was 165. Blood gas showed pCO2 86 and went down to 73 and is now 77. CO2 68 and now 87. Bicarbonate 42.2. O2 saturation as low as 86% and is now 96.5%. Potassium is slightly low today and she received some supplementation. Sodium is 139, chloride 89. MICROBIOLOGY: Blood cultures show no growth after 5 days. RADIOLOGY: Final chest x-ray shows stable congestive changes. All other labs and films have been reviewed via the EMR. DISCHARGE PLAN: The patient will be discharged home in stable condition. She is to resume her previous diet and increase activity as tolerated. In addition to her routine home medications, her labetalol is now 50 mg b.i.d. and I have added amlodipine. She will also have a week of cefdinir. She has completed her azithromycin. She will also have a steroid taper. She has a followup appointment with Dr. De La Torre on 11/02/20 at 2:15 PM. She is to return to the hospital or followup with Dr. De La Torre for any problems or complications. DISCHARGE MEDICATIONS: 1. Zofran. 2. Losartan. 3. Clonidine. 4. Potassium. 5. Acetaminophen. 6. Acetaminophen with codeine. 7. Align. 8. Cefdinir. 9. Guaifenesin. 10. Amlodipine. 11. Atenolol. #[id number] [facility]
== END 2020-10-27 13:05 | disposition home or self-care (01) | DRG 190 ==
LOC: ER 18:04 → MS 18:05 → UNDOADMOB 20:56 → INTOOBSV 20:56 → OBSVTOIN 20:56 → MS 20:56 → INTOOBSV 10-23 00:10 → OBSVTOIN 10-23 00:10 → MS 10-23 00:10 → UNDOADMOB 10-23 00:10 → UNDODISIN 10-27 13:05
PROVIDERS: ADMIT Nurse Practitioner Family; ATTEND Nurse Practitioner Acute Care
DX: J44.1 Chronic obstructive pulmonary disease with (acute) exacerbation (principal); J18.9 Pneumonia, unspecified organism; E66.2 Morbid (severe) obesity with alveolar hypoventilation; J96.21 Acute and chronic respiratory failure with hypoxia; J96.22 Acute and chronic respiratory failure with hypercapnia; Z68.44 Body mass index [BMI] 60.0-69.9, adult; J44.0 Chronic obstructive pulmonary disease with (acute) lower respiratory infection; G47.33 Obstructive sleep apnea (adult) (pediatric); F17.210 Nicotine dependence, cigarettes, uncomplicated; Z79.1 Long term (current) use of non-steroidal anti-inflammatories (NSAID); Z79.82 Long term (current) use of aspirin; Z79.891 Long term (current) use of opiate analgesic; Z88.0 Allergy status to penicillin; Z79.899 Other long term (current) drug therapy; Z85.89 Personal history of malignant neoplasm of other organs and systems

== ENCOUNTER → 2020-12-07 | Outpatient (CLI) | payer SELFPAY | LOC: YCFC.O 14:34 | PROVIDERS: ATTEND Family Medicine | DX: I10 Essential (primary) hypertension (principal); R76.8 Other specified abnormal immunological findings in serum; M13.0 Polyarthritis, unspecified ==